=== PATIENT | female | born 1950 | race American Indian/Alaskan Native ===

== ENCOUNTER 2018-06-29 07:02 | Inpatient (IN) | payer MEDICARE ==
[2018-06-29] MEDS ORDERED: ATIVAN ONE (07:04)
[2018-06-29] MEDS ORDERED: ATIVAN IV ONE ×2 (07:09→07:28)
[2018-06-29] MEDS ORDERED: KEPPRA 1,000 MG in NACL 0.9% 100 ML IV ONE (07:10)
--- NOTE | 2018-06-29 07:21 | Emergency Department Report ---
ED Seizure HPI - General Stated Complaint: SEIZURE Time Seen by Provider: 06/29/18 07:09 - History of Present Illness Initial Comments: 67-year-old female presents to the ED by EMS for a seizure. Patient has history of CVA and seizures, currently takes Keppra. states patient got up to go to the bathroom, she then fell, hitting her head, and then began to have a seizure. It is unclear if pt fell due to onset of seizure, or if seizure began after trauma to the head. EMS was called, patient was given 2mg of Ativan and 5 mg of Versed. Patient is still seizing upon ED arrival. and family states patient has not been sick and has not had any complaints recently. MD Complaint: seizure -: This morning Description of Episode: tonic-clonic movement Witnessed:: Yes Trauma: Yes (head) Seizure History: known seizure disorder Place: home Possible Precipitating Event: head injury Treatments Prior to Arrival: benzodiazepines - Related Data Home Medications Medication Instructions Recorded Confirmed Last Taken Insulin Glargine,Hum.rec.anlog 35 unit SQ QHS 05/14/13 06/26/14 06/25/14 21:00 [Lantus Solostar] Previous Rx's Medication Instructions Recorded Last Taken Type Aspirin [Aspirin TAB] 325 mg PO QDAY #30 tablet 07/18/14 Unknown Rx Captopril (Nf) [Capoten (Nf)] 50 mg PO Q8HR #90 tablet 07/18/14 Unknown Rx OXcarbazepine [Trileptal] 600 mg PO BID #60 tablet 07/18/14 Unknown Rx Sertraline [Zoloft] 25 mg PO QDAY #30 tablet 07/18/14 Unknown Rx Simvastatin [Zocor TAB] 10 mg PO QHS #30 tablet 07/18/14 Unknown Rx amLODIPine [Norvasc] 10 mg PO DAILY #30 tablet 07/18/14 Unknown Rx clonazePAM [KlonoPIN] 0.5 mg PO Q12H #60 tablet 07/18/14 Unknown Rx hydrALAZINE [Apresoline TAB] 10 mg PO Q8HR PRN #90 tablet 07/18/14 Unknown Rx hydroCHLOROthiazide [HCTZ] 12.5 mg PO QDAY #30 capsule 07/18/14 Unknown Rx oxyCODONE /ACETAMINOPHEN [Percocet 1 tab PO Q6H PRN #14 tablet 07/18/14 Unknown Rx 5/325 mg] Allergies Allergy/AdvReac Type Severity Reaction Status Date / Time paper tape Allergy Itching Uncoded 06/28/14 02:59 ED Review of Systems ROS: Stated complaint: SEIZURE Other details as noted in HPI Comment: Unobtainable due to pts medical conditions (pt w/ altered mental status) ED Past Medical Hx - Past Medical History Hx Hypertension: Yes Hx CVA: Yes Hx Heart Attack/AMI: No Hx Congestive Heart Failure: No Hx Diabetes: Yes Hx Deep Vein Thrombosis: No Hx Pulmonary Embolism: No Hx Liver Disease: No Hx Renal Disease: No Hx Sickle Cell Disease: No Hx Arthritis: Yes Hx Headaches / Migraines: Yes Hx Seizures: Yes Hx Kidney Stones: Yes (removed 2009) Hx Asthma: No Hx COPD: No Hx Tuberculosis: No Hx Dementia: No Hx HIV: No - Surgical History Hx Coronary Stent: No Hx Open Heart Surgery: No Hx Pacemaker: No Hx Internal Defibrillator: No Hx Cholecystectomy: Yes Hx Appendectomy: No Hx Breast Surgery: No - Social History Smoking Status: Former Smoker - Medications Home Medications: Home Medications Medication Instructions Recorded Confirmed Last Taken Type Insulin Glargine,Hum.rec.anlog 35 unit SQ QHS 05/14/13 06/26/14 06/25/14 21:00 History [Lantus Solostar] Aspirin [Aspirin TAB] 325 mg PO QDAY #30 tablet 07/18/14 Unknown Rx Captopril (Nf) [Capoten (Nf)] 50 mg PO Q8HR #90 tablet 07/18/14 Unknown Rx OXcarbazepine [Trileptal] 600 mg PO BID #60 tablet 07/18/14 Unknown Rx Sertraline [Zoloft] 25 mg PO QDAY #30 tablet 07/18/14 Unknown Rx Simvastatin [Zocor TAB] 10 mg PO QHS #30 tablet 07/18/14 Unknown Rx amLODIPine [Norvasc] 10 mg PO DAILY #30 tablet 07/18/14 Unknown Rx clonazePAM [KlonoPIN] 0.5 mg PO Q12H #60 tablet 07/18/14 Unknown Rx hydrALAZINE [Apresoline TAB] 10 mg PO Q8HR PRN #90 tablet 07/18/14 Unknown Rx hydroCHLOROthiazide [HCTZ] 12.5 mg PO QDAY #30 capsule 07/18/14 Unknown Rx oxyCODONE /ACETAMINOPHEN [Percocet 1 tab PO Q6H PRN #14 tablet 07/18/14 Unknown Rx 5/325 mg] ED Physical Exam - Head Head exam: Present: atraumatic, normocephalic - Eye Eye exam: Present: PERRL - ENT ENT exam: Present: mucous membranes moist - Neck Neck exam: Present: normal inspection - Respiratory Respiratory exam: Present: normal lung sounds bilaterally, other (tachypneic) - Cardiovascular Cardiovascular Exam: Present: normal rhythm, tachycardia - GI/Abdominal GI/Abdominal exam: Present: soft. Absent: distended - Extremities Exam Extremities exam: Present: normal inspection - Neurological Exam Neurological exam: Present: other (pt is obtunded; seizure has stopped, pt mov ing right hand to nose, moving right leg; not following commands; no movement noted in left arm or leg, family reports left-sided deficits from her CVA) - Skin Skin exam: Present: warm, dry, intact, normal color. Absent: rash ED Course Vital Signs 06/29/18 06/29/18 06/29/18 07:02 07:04 07:16 Temperature Pulse Rate 140 H 117 H 112 H Respiratory 30 H 35 H Rate Blood Pressure 172/98 172/98 O2 Sat by Pulse 98 99 99 Oximetry 06/29/18 06/29/18 06/29/18 07:30 07:46 07:47 Temperature Pulse Rate 121 H 122 H 121 H Respiratory 29 H 17 Rate Blood Pressure 153/69 116/75 117/75 O2 Sat by Pulse 100 100 100 Oximetry 06/29/18 06/29/18 06/29/18 08:12 08:15 08:30 Temperature Pulse Rate 113 H 114 H 114 H Respiratory 25 H 22 15 Rate Blood Pressure 116/75 133/66 138/63 O2 Sat by Pulse 97 96 Oximetry 06/29/18 06/29/18 06/29/18 08:45 08:46 09:00 Temperature 99.0 F Pulse Rate 110 H 110 H Respiratory 18 18 Rate Blood Pressure 91/48 106/58 O2 Sat by Pulse 97 97 Oximetry 06/29/18 06/29/18 09:12 09:15 Temperature Pulse Rate 106 H 106 H Respiratory 20 Rate Blood Pressure 106/58 111/57 O2 Sat by Pulse 99 99 Oximetry - Intubation Time Out Performed: Yes Sedative: Etomidate Mg Given: 30 Paralytic: Succinylcholine Mg Given: 150 Laryngoscope: Kimberley Size: 4 ET Tube Size: 7.5 Tube Placement Confirmation: visualized tube passing t, equal breath sounds bilat, no breath sounds over epi, confirmation by capnometr Patient Tolerated Procedure: well Intubation Complications: none ED Medical Decision Making - Lab Data Result diagrams: 06/29/18 Unknown 06/29/18 Unknown - Radiology Data Radiology results: report reviewed, image reviewed - Medical Decision Making 67-year-old female in status epilepticus. History of seizures, on keppra. The patient began seizing at home, initially given 5 mg of Versed and 2 mg of Ativan by EMS. Patient presented to ER actively seizing, so 2 mg of Ativan was given, along with 1 g of Keppra. Seizure resolved briefly, but then returned. Patient was given another 2 mg of Ativan. Decision was made to intubate patient for airway protection. Chest x-ray showed adequate placement of ET tube, with no other acute abnormalities. Head CT negative for any acute abnormalities also. Patient currently sedated on propofol drip, no seizure activity noted. Labs resulted. Leukocytosis present, likely due to seizure. Mild CO2 retention on ABG, vent rate increased. UA shows no ketones, no UTI. Hyperglycemia present, however her CO2 normal, no ketones in urine, likely not DKA. Will admit to hospitalist, bridge orders placed. - Differential Diagnosis intracranial injury, electrolyte abnormality, infection, status epilepticus Critical Care Time: Yes Critical care time in (mins) excluding proc time.: 35 Critical care attestation.: If time is entered above; I have spent that time in minutes in the direct care of this critically ill patient, excluding procedure time. Critical Care Time: 35 minutes ED Disposition Clinical Impression: Status epilepticus, Hyperglycemia Disposition: DC OP ADMIT IP TO THIS HOSP Is pt being admited?: Yes Condition: Stable Referrals: PRIMARY CARE, [Primary Care Provider] - 3-5 Days
[2018-06-29] MEDS ORDERED: NACL 0.9% 1000 ML 1,000 ML ONE (07:36)
[2018-06-29] MEDS ORDERED: AMIDATE IV ONE ×2 (07:41→10:26)
[2018-06-29] MEDS ORDERED: QUELICIN IV ONE (07:41)
[2018-06-29] MEDS ORDERED: NACL 0.9% 1000 ML 1,000 ML IV ONE ×2 (07:41→08:52)
[2018-06-29] MEDS: DIPRIVAN 10 MG/ML 1,000 MG/100 ML BOTTLE IV ONE ×2 (07:58→13:39)
[2018-06-29] MEDS ORDERED: KEPPRA 1,000 MG/NS 0.75% 100ML 1,000 MG/100 ML BAG IV ONE ×2 (08:00→12:16)
[2018-06-29 08:13] LABS: Hematocrit 47.2 % (30.3-42.9); Hemoglobin 15.8 gm/dl (10.1-14.3); Mean Corpuscular HGB Conc 33 % (30-34); Mean Corpuscular Volume 91 fl (79-97); Platelet Count 328 K/mm3 (140-440); Red Blood Count 5.18 M/mm3 (3.65-5.03)
--- NOTE | 2018-06-29 08:13 | XRay Report ---
AP CHEST: HISTORY: Endotracheal tube placement Compared to 06/26/14. The endotracheal tube terminates 3 cm from the flip. There is poor pulmonary inflation with minor bibasilar atelectatic changes. No obvious infiltrate, pleural effusion or pneumothorax. Heart size is within normal limits. IMPRESSION: Adequate endotracheal tube placement. Grossly negative chest x-ray with poor inspiration.
--- NOTE | 2018-06-29 08:22 | Cat Scan Report ---
CT HEAD WITHOUT CONTRAST: HISTORY: Head injury, seizure. TECHNIQUE: Sequential CT images without contrast. FINDINGS: Compared to the exam dated 07/13/14. The previously described right MCA infarct has evolved and now has a chronic appearance. Small chronic cortical infarcts are identified in the anterior right frontal lobe and superior right temporal lobe. Larger cortical infarct measuring up to 6 x 3 cm in the right parietal lobe is noted. There is moderate diffuse volume loss and mild nonspecific chronic white matter changes. No evidence for acute hemorrhage, extra axial fluid collection or obvious mass. Ventricular size is within normal limits. Resolution of the posterior fossa is slightly limited secondary to streak artifact but no gross abnormality is detected. The right frontal and right anterior ethmoid air cells are opacified. The remaining sinuses and mastoid air cells are adequately aerated. No calvarial fracture is detected. IMPRESSION: No acute intracranial process is identified. No evidence for acute injury. Chronic cortical infarcts in the right cerebral hemisphere as described. Mild volume loss and chronic white matter changes. Chronic sinus disease as described.
[2018-06-29 08:32] LABS: Albumin 4.2 g/dL (3.9-5); BUN/Creatinine Ratio 14; Blood Urea Nitrogen 13 mg/dL (7-17); Calcium 8.6 mg/dL (8.4-10.2); Hemolysis Index 106
[2018-06-29 08:57] LABS: Alanine Aminotransferase 11 units/L (7-56)
[2018-06-29] MEDS ORDERED: HumuLIN R IV ONE (09:10)
[2018-06-29 09:18] LABS: Bilirubin,Urine NEG (Negative); Blood,Urine NEG (Negative); Color,Urine Straw (Yellow); RBC,Urine < 1.0 /HPF (0.0-6.0); Urobilinogen,Urine < 2.0 mg/dL (<2.0)
[2018-06-29 09:59] LABS: Basophils % (Manual) 0 % (0.0-1.8); Eosinophils % (Manual) 0 % (0.0-4.3); Total Cells Counted 100
[2018-06-29 10:00] LABS: Anisocytosis 1+; Platelet Estimate Consistent w Auto
[2018-06-29] MEDS ORDERED: QUELICIN ONE (10:26)
--- NOTE | 2018-06-29 11:35 | XRay Report ---
AP ABDOMEN: HISTORY: OG tube placement. The OG tube terminates in the body of the stomach. The abdominal gas pattern is unremarkable. No masses or organomegaly is identified and there is no gross evidence of free air or fluid. No significant soft tissue calcifications are noted. Moderate cardiomegaly is noted. IMPRESSION: Unremarkable abdomen. The OG tube terminates in the mid stomach.
--- NOTE | 2018-06-29 13:08 | History and Physical Report ---
History of Present Illness Date of admission: 06/29/18 09:59 Chief complaint: Grand mal seizure History of present illness: 67F w hx of seizures on trileptal who presents from home with grand kristin oro, she was given versed and ativan by EMS, and brought to ER, she was still actively seizing in ER. she received more ativan and keppra, continued to have seizures, was then inutubated and sedated on propofol ggt, seizures have now seized. currently sedated Past History Past Medical History: arthritis, diabetes, hypertension, other (depression), R MCA CVA in 2014 Past Surgical History: , Other (ACDF, right shoulder) Social history: , lives with family, smoking (1/2 ppd) Medications and Allergies Allergies Allergy/AdvReac Type Severity Reaction Status Date / Time paper tape Allergy Itching Uncoded 06/28/14 02:59 Home Medications Medication Instructions Recorded Confirmed Last Taken Type Insulin Glargine,Hum.rec.anlog 35 unit SQ QHS 05/14/13 06/26/14 06/25/14 21:00 History [Lantus Solostar] Aspirin [Aspirin TAB] 325 mg PO QDAY #30 tablet 07/18/14 Unknown Rx Captopril (Nf) [Capoten (Nf)] 50 mg PO Q8HR #90 tablet 07/18/14 Unknown Rx OXcarbazepine [Trileptal] 600 mg PO BID #60 tablet 07/18/14 Unknown Rx Sertraline [Zoloft] 25 mg PO QDAY #30 tablet 07/18/14 Unknown Rx Simvastatin [Zocor TAB] 10 mg PO QHS #30 tablet 07/18/14 Unknown Rx amLODIPine [Norvasc] 10 mg PO DAILY #30 tablet 07/18/14 Unknown Rx clonazePAM [KlonoPIN] 0.5 mg PO Q12H #60 tablet 07/18/14 Unknown Rx hydrALAZINE [Apresoline TAB] 10 mg PO Q8HR PRN #90 tablet 07/18/14 Unknown Rx hydroCHLOROthiazide [HCTZ] 12.5 mg PO QDAY #30 capsule 07/18/14 Unknown Rx oxyCODONE /ACETAMINOPHEN [Percocet 1 tab PO Q6H PRN #14 tablet 07/18/14 Unknown Rx 5/325 mg] Active Meds: Active Medications Propofol (Diprivan 10 Mg/Ml) 1,000 mg in 100 mls @ 2.871 mls/hr IV TITR ONE; Protocol Stop: 06/30/18 18:38 Last Titration: 06/29/18 08:30 Dose: 30 mcg/kg/min, 17.226 mls/hr Documented by: Pneumococcal Polyvalent Vaccine (Pneumovax 23) 0.5 ml IM .ONCE ONE Stop: 06/30/18 12:01 Review of Systems ROS unobtainable: due to mental status Exam - Constitutional Vitals: Temp Pulse Resp BP Pulse Ox 99.0 F 102 H 22 130/65 98 06/29/18 08:45 06/29/18 10:15 06/29/18 10:15 06/29/18 10:15 06/29/18 10:15 General appearance: Present: well-nourished - EENT Eyes: Present: PERRL ENT: hearing intact, clear oral mucosa - Neck Neck: Present: supple, normal ROM - Respiratory Respiratory effort: normal Respiratory: bilateral: CTA - Cardiovascular Heart Sounds: Present: S1 & S2. Absent: rub, click - Extremities Extremities: pulses symmetrical, No edema Peripheral Pulses: within normal limits - Abdominal General gastrointestinal: Present: soft, non-tender, non-distended, normal bowel sounds Female genitourinary: Present: normal - Integumentary Integumentary: Present: clear, warm, dry - Musculoskeletal Musculoskeletal: gait normal, strength equal bilaterally - Psychiatric Psychiatric: other (intubated and sedated.) - Neurologic Neurologic: other (intubated and sedated) Results - Labs CBC & Chem 7: 06/29/18 Unknown 06/29/18 Unknown Labs: Laboratory Last Values WBC 21.5 K/mm3 (4.5-11.0) H 06/29/18 Unknown RBC 5.18 M/mm3 (3.65-5.03) H 06/29/18 Unknown Hgb 15.8 gm/dl (10.1-14.3) H 06/29/18 Unknown Hct 47.2 % (30.3-42.9) H 06/29/18 Unknown MCV 91 fl (79-97) 06/29/18 Unknown MCH 30 pg (28-32) 06/29/18 Unknown MCHC 33 % (30-34) 06/29/18 Unknown RDW 14.0 % (13.2-15.2) 06/29/18 Unknown Plt Count 328 K/mm3 (140-440) 06/29/18 Unknown Add Manual Diff Complete 06/29/18 Unknown Total Counted 100 06/29/18 Unknown Seg Neutrophils % Machine Ceramic Coater 06/29/18 Unknown Seg Neuts % (Manual) 96.0 % (40.0-70.0) H 06/29/18 Unknown Band Neutrophils % 0 % 06/29/18 Unknown Lymphocytes % (Manual) 3.0 % (13.4-35.0) L 06/29/18 Unknown Reactive Lymphs % (Man) 0 % 06/29/18 Unknown Monocytes % (Manual) 1.0 % (0.0-7.3) 06/29/18 Unknown Eosinophils % (Manual) 0 % (0.0-4.3) 06/29/18 Unknown Basophils % (Manual) 0 % (0.0-1.8) 06/29/18 Unknown Metamyelocytes % 0 % 06/29/18 Unknown Myelocytes % 0 % 06/29/18 Unknown Promyelocytes % 0 % 06/29/18 Unknown Blast Cells % 0 % 06/29/18 Unknown Nucleated RBC % Not Reportable 06/29/18 Unknown Seg Neutrophils # Man 20.6 K/mm3 (1.8-7.7) H 06/29/18 Unknown Band Neutrophils # 0.0 K/mm3 06/29/18 Unknown Lymphocytes # (Manual) 0.6 K/mm3 (1.2-5.4) L 06/29/18 Unknown Abs React Lymphs (Man) 0.0 K/mm3 06/29/18 Unknown Monocytes # (Manual) 0.2 K/mm3 (0.0-0.8) 06/29/18 Unknown Eosinophils # (Manual) 0.0 K/mm3 (0.0-0.4) 06/29/18 Unknown Basophils # (Manual) 0.0 K/mm3 (0.0-0.1) 06/29/18 Unknown Metamyelocytes # 0.0 K/mm3 06/29/18 Unknown Myelocytes # 0.0 K/mm3 06/29/18 Unknown Promyelocytes # 0.0 K/mm3 06/29/18 Unknown Blast Cells # 0.0 K/mm3 06/29/18 Unknown WBC Morphology Not Reportable 06/29/18 Unknown Hypersegmented Neuts Not Reportable 06/29/18 Unknown Hyposegmented Neuts Not Reportable 06/29/18 Unknown Hypogranular Neuts Not Reportable 06/29/18 Unknown Smudge Cells Not Reportable 06/29/18 Unknown Toxic Granulation Not Reportable 06/29/18 Unknown Toxic Vacuolation Not Reportable 06/29/18 Unknown Dohle Bodies Not Reportable 06/29/18 Unknown Pelger-Huet Anomaly Not Reportable 06/29/18 Unknown Johanna Rods Not Reportable 06/29/18 Unknown Platelet Estimate Consistent w auto 06/29/18 Unknown Clumped Platelets Not Reportable 06/29/18 Unknown Plt Clumps, EDTA Not Reportable 06/29/18 Unknown Large Platelets Not Reportable 06/29/18 Unknown Giant Platelets Not Reportable 06/29/18 Unknown Platelet Satelliting Not Reportable 06/29/18 Unknown Plt Morphology Comment Not Reportable 06/29/18 Unknown RBC Morphology Not Reportable 06/29/18 Unknown Dimorphic RBCs Not Reportable 06/29/18 Unknown Polychromasia 1+ 06/29/18 Unknown Hypochromasia Not Reportable 06/29/18 Unknown Poikilocytosis Not Reportable 06/29/18 Unknown Anisocytosis 1+ 06/29/18 Unknown Microcytosis Not Reportable 06/29/18 Unknown Macrocytosis Not Reportable 06/29/18 Unknown Spherocytes Not Reportable 06/29/18 Unknown Pappenheimer Bodies Not Reportable 06/29/18 Unknown Sickle Cells Not Reportable 06/29/18 Unknown Target Cells Not Reportable 06/29/18 Unknown Tear Drop Cells Not Reportable 06/29/18 Unknown Ovalocytes Not Reportable 06/29/18 Unknown Helmet Cells Not Reportable 06/29/18 Unknown [place] Bodies Not Reportable 06/29/18 Unknown [place] Rings Not Reportable 06/29/18 Unknown [place] Cells Not Reportable 06/29/18 Unknown Bite Cells Not Reportable 06/29/18 Unknown Crenated Cell Not Reportable 06/29/18 Unknown Elliptocytes Not Reportable 06/29/18 Unknown Acanthocytes (Spur) Not Reportable 06/29/18 Unknown Rouleaux Not Reportable 06/29/18 Unknown Hemoglobin C Crystals Not Reportable 06/29/18 Unknown Schistocytes Not Reportable 06/29/18 Unknown Malaria parasites Not Reportable 06/29/18 Unknown Alex Bodies Not Reportable 06/29/18 Unknown Hem Pathologist Commnt No 06/29/18 Unknown POC ABG pH 7.313 (7.35-7.45) L 06/29/18 09:12 POC ABG pCO2 49.6 (35-45) H 06/29/18 09:12 POC ABG pO2 81 (80-105) 06/29/18 09:12 POC ABG HCO3 25.1 06/29/18 09:12 POC ABG Total CO2 27 06/29/18 09:12 POC ABG O2 Sat 95 06/29/18 09:12 POC ABG Base Excess -1 06/29/18 09:12 FiO2 45 % 06/29/18 09:12 Sodium 136 mmol/L (137-145) L 06/29/18 Unknown Potassium 5.5 mmol/L (3.6-5.0) H 06/29/18 Unknown Chloride 92.5 mmol/L (98-107) L 06/29/18 Unknown Carbon Dioxide 25 mmol/L (22-30) 06/29/18 Unknown Anion Gap 24 mmol/L 06/29/18 Unknown BUN 13 mg/dL (7-17) 06/29/18 Unknown Creatinine 0.9 mg/dL (0.7-1.2) 06/29/18 Unknown Estimated GFR > 60 ml/min 06/29/18 Unknown BUN/Creatinine Ratio 14 % 06/29/18 Unknown Glucose 398 mg/dL (65-100) H 06/29/18 Unknown POC Glucose 211 (70-105) H 06/29/18 11:35 Calcium 8.6 mg/dL (8.4-10.2) 06/29/18 Unknown Total Bilirubin 0.50 mg/dL (0.1-1.2) 06/29/18 Unknown AST 28 units/L (5-40) 06/29/18 Unknown ALT 11 units/L (7-56) 06/29/18 Unknown Alkaline Phosphatase 89 units/L (35-129) 06/29/18 Unknown Total Creatine Kinase 101 units/L (30-135) 06/29/18 Unknown Total Protein 7.2 g/dL (6.3-8.2) 06/29/18 Unknown Albumin 4.2 g/dL (3.9-5) 06/29/18 Unknown Albumin/Globulin Ratio 1.4 % 06/29/18 Unknown Urine Color Straw (Yellow) 06/29/18 08:14 Urine Turbidity Clear (Clear) 06/29/18 08:14 Urine pH 7.0 (5.0-7.0) 06/29/18 08:14 Ur Specific [place] 1.009 (1.003-1.030) 06/29/18 08:14 Urine Protein 100 mg/dl mg/dL (Negative) 06/29/18 08:14 Urine Glucose (UA) >=500 mg/dL (Negative) 06/29/18 08:14 Urine Ketones Neg mg/dL (Negative) 06/29/18 08:14 Urine Blood Neg (Negative) 06/29/18 08:14 Urine Nitrite Neg (Negative) 06/29/18 08:14 Urine Bilirubin Neg (Negative) 06/29/18 08:14 Urine Urobilinogen < 2.0 mg/dL (<2.0) 06/29/18 08:14 Ur Leukocyte Esterase Neg (Negative) 06/29/18 08:14 Urine WBC (Auto) 2.0 /HPF (0.0-6.0) 06/29/18 08:14 Urine RBC (Auto) < 1.0 /HPF (0.0-6.0) 06/29/18 08:14 - Imaging and Cardiology Chest x-ray: image reviewed (no infiltrate) CT Scan - head: image reviewed (no acute findings) Assessment and Plan Assessment and plan: 67f who pw status epilepticus, continued seizing despite multiple doses of ativan, and was given keppra and versed, was then intubated and sedated on propofol ggt after which seizures ceased Dx Status epilepticus Acute metabolic encephalopathy SIRS without organ dysfunction Hyperkalemia Hyperglycemia Type 2 dm Plan UA, cxr, neg, fup sputum cx Intubated and sedated, IV Keppra, neurology consult, CT head negative Continue ventilator, wean per pulmonology Discontinue Coker catheter IV fluids, hyperkalemia and hyperglycemia should correct with IV fluids -SSi, optimize insulins DVT prophylaxis, SCDs Critical care TIME 35 MINUTES
[2018-06-29] MEDS ORDERED: DIPRIVAN 10 MG/ML 1,000 MG/100 ML BOTTLE IV ONE (13:23)
[2018-06-29] MEDS ORDERED: D50W (25GM) Syringe IV PRN (13:42)
[2018-06-29] MEDS ORDERED: SODIUM CHLORIDE FLUSH SYRINGE 10 ML IV PRN (13:42)
[2018-06-29] MEDS ORDERED: ZOFRAN IV PRN (13:42)
[2018-06-29] MEDS ORDERED: TYLENOL PO PRN (13:42)
[2018-06-29] MEDS ORDERED: NACL 0.9% 1000 ML 1,000 ML IV SCH (14:00)
[2018-06-29] MEDS: HumuLIN R SUB-Q SCH (15:21)
[2018-06-29] MEDS ORDERED: NON-FORMULARY (Simvastatin 10 MG) PO SCH (22:00)
[2018-06-29] MEDS: TRILEPTAL PO SCH (22:15)
[2018-06-29] MEDS: PRAVACHOL PO SCH (22:16)
[2018-06-29] MEDS: KEPPRA 1,000 MG/NS 0.75% 100ML 1,000 MG/100 ML BAG IV SCH (22:16)
[2018-06-29] MEDS: SODIUM CHLORIDE FLUSH SYRINGE 10 ML IV SCH (22:17)
[2018-06-30] MEDS: HumuLIN R SUB-Q SCH ×6 (00:15→21:31)
[2018-06-30 04:59] LABS: Hemoglobin 14.8 gm/dl (10.1-14.3); Mean Corpuscular HGB Conc 33 % (30-34); Mean Corpuscular Volume 90 fl (79-97); Platelet Count 280 K/mm3 (140-440); Red Blood Count 4.98 M/mm3 (3.65-5.03); Red Cell Distribution Width 13.7 % (13.2-15.2)
[2018-06-30 05:08] LABS: Calcium 8.3 mg/dL (8.4-10.2)
[2018-06-30 05:49] LABS: Band Neutrophils # (Manual) 0.4 K/mm3; Basophils % (Manual) 0 % (0.0-1.8); Eosinophils % (Manual) 0 % (0.0-4.3); RBC Morphology Normal; Total Cells Counted 100
[2018-06-30] MEDS ORDERED: POTASSIUM CHLORIDE FEEDTUBE ONE ×3 (07:00→11:00)
[2018-06-30] MEDS ORDERED: SIMPLE SYRUP FEEDTUBE PRN ×2 (09:13)
[2018-06-30] MEDS ORDERED: SODIUM BICARBONATE FEEDTUBE PRN (09:13)
[2018-06-30] MEDS ORDERED: PANCREAZE DR 10,500 UNIT FEEDTUBE PRN (09:13)
[2018-06-30] MEDS ORDERED: DIPRIVAN 10 MG/ML 1,000 MG/100 ML BOTTLE IV SCH (10:00)
[2018-06-30] MEDS ORDERED: PEPCID IV SCH (10:00)
[2018-06-30] MEDS: ZOLOFT PO SCH (10:53)
[2018-06-30] MEDS: TRILEPTAL PO SCH (10:53)
[2018-06-30] MEDS: SODIUM CHLORIDE FLUSH SYRINGE 10 ML IV SCH ×2 (10:54→21:35)
[2018-06-30] MEDS: KEPPRA 1,000 MG/NS 0.75% 100ML 1,000 MG/100 ML BAG IV SCH (10:54)
--- NOTE | 2018-06-30 11:49 | Consultation ---
History of Present Illness Consult date: 06/30/18 Requesting physician: HAZEL ZELAYA Reason for consult: other (Status Epilepticus) History of present illness: 67 y/o history of seizures who fell and was brought to the ED actively seizing. She was given Ativan and Versed and seizure not broken. Patient intubated and placed on Diprovan with cessation of seizures. Loaded with Keppra and then started on BID Keppra. Patient was on triletpal at home prior to this. Past History Past Medical History: diabetes, hypertension, seizures Past Surgical History: Other (unable to be obtained) Social history: other (unable to be obtained) Family history: other (unable to be obtained) Medications and Allergies Allergies Allergy/AdvReac Type Severity Reaction Status Date / Time paper tape Allergy Itching Uncoded 06/28/14 02:59 Home Medications Medication Instructions Recorded Confirmed Last Taken Type Duloxetine HCl [DULoxetine] 30 mg PO DAILY 06/29/18 06/29/18 Unknown History Insulin Detemir [Levemir] 30 unit SQ BID 06/29/18 06/29/18 Unknown History Lisinopril [Zestril] 20 mg PO BID 06/29/18 06/29/18 Unknown History Quetiapine Fumarate [SEROquel] 50 mg PO QDAY 06/29/18 06/29/18 Unknown History levETIRAcetam [Keppra TAB] 1,000 mg PO BID 06/29/18 06/29/18 Unknown History metFORMIN [Glucophage] 500 mg PO BID 06/29/18 06/29/18 Unknown History Active Meds: Active Medications Acetaminophen (Tylenol) 650 mg PO Q4H PRN PRN Reason: Pain MILD(1-3)/Fever >100.5/PEREZ Lipase/Protease/Amylase ([place]creaze Dr 10,500 Unit) 1 each FEEDTUBE PRN PRN PRN Reason: For Clogged Feeding Tube Dextrose (D50w (25gm) Syringe) 50 ml IV PRN PRN PRN Reason: Hypoglycemia Heparin Sodium (Porcine) (Heparin) 5,000 unit SUB-Q Q8HR [facility] Levetiracetam (Keppra 1,000 Mg/Ns 0.75% 100ml) 1,000 mg in 100 mls @ 400 mls/hr IV Q12HR [facility] Last Admin: 06/30/18 10:54 Dose: 400 mls/hr Documented by: Propofol (Diprivan 10 Mg/Ml) 1,000 mg in 100 mls @ 2.871 mls/hr IV TITR [facility]; Protocol Insulin Human Regular (Humulin R) 0 units SUB-Q Q6HR [facility]; Protocol Last Admin: 06/30/18 06:07 Dose: 3 units Documented by: Ondansetron HCl (Zofran) 4 mg IV Q8H PRN PRN Reason: Nausea And Vomiting Oxcarbazepine (Trileptal) 600 mg PO BID [facility] Last Admin: 06/30/18 10:53 Dose: 600 mg Documented by: Pneumococcal Polyvalent Vaccine (Pneumovax 23) 0.5 ml IM .ONCE ONE Stop: 06/30/18 12:01 Last Admin: 06/30/18 11:11 Dose: Not Given Documented by: Pravastatin Sodium (Pravachol) 20 mg PO QHS [facility] Last Admin: 06/29/18 22:16 Dose: 20 mg Documented by: Sertraline HCl (Zoloft) 25 mg PO QDAY [facility] Last Admin: 06/30/18 10:53 Dose: 25 mg Documented by: Simple Syrup (Simple Syrup) 15 ml FEEDTUBE PRN PRN PRN Reason: Hypoglycemia Simple Syrup (Simple Syrup) 30 ml FEEDTUBE PRN PRN PRN Reason: Hypoglycemia Sodium Bicarbonate (Sodium Bicarbonate) 325 mg FEEDTUBE PRN PRN PRN Reason: For Clogged Feeding Tube Sodium Chloride (Sodium Chloride Flush Syringe 10 Ml) 10 ml IV BID [facility] Last Admin: 06/30/18 10:54 Dose: 10 ml Documented by: Sodium Chloride (Sodium Chloride Flush Syringe 10 Ml) 10 ml IV PRN PRN PRN Reason: LINE FLUSH Review of Systems All systems: negative Physical Examination Vital signs: Vital Signs Pulse Pulse Ox 140 H 98 06/29/18 07:02 06/29/18 07:02 General appearance: no acute distress, alert ENT: other (orally intubated and sedated) Neck: supple Effort: normal Ascultation: Bilateral: clear Percussion: Bilateral: not dull Cardiovascular: regular rate and rhythm Gastrointestinal: normoactive bowel sounds, soft, non-distended Integumentary: normal Extremities: no cyanosis, no edema, pink and warm, pulses normal normal mental status, non-focal exam, CN II-XII normal Results - Laboratory Findings CBC and BMP: 06/30/18 03:47 06/30/18 03:47 ABG POC ABG pH 7.478 (7.35-7.45) H 06/30/18 04:52 POC ABG pCO2 32.4 (35-45) L 06/30/18 04:52 POC ABG pO2 76 (80-105) L 06/30/18 04:52 POC ABG HCO3 24.0 06/30/18 04:52 POC ABG Total CO2 25 06/30/18 04:52 POC ABG O2 Sat 96 06/30/18 04:52 Abnormal lab findings: Abnormal Labs 06/29/18 06/29/18 06/29/18 09:11 09:12 11:35 WBC RBC Hgb Hct Seg Neuts % (Manual) Lymphocytes % (Manual) Seg Neutrophils # Man Lymphocytes # (Manual) Monocytes # (Manual) POC ABG pH 7.313 L POC ABG pCO2 49.6 H POC ABG pO2 Sodium Potassium Chloride BUN Glucose POC Glucose 320 H 211 H Hemoglobin A1c Calcium 06/29/18 06/29/18 06/29/18 15:20 16:52 23:48 WBC RBC Hgb Hct Seg Neuts % (Manual) Lymphocytes % (Manual) Seg Neutrophils # Man Lymphocytes # (Manual) Monocytes # (Manual) POC ABG pH POC ABG pCO2 34.3 L POC ABG pO2 Sodium Potassium Chloride BUN Glucose POC Glucose 142 H 154 H Hemoglobin A1c Calcium 06/29/18 06/29/18 06/30/18 Unknown Unknown 03:47 WBC 21.5 H 21.4 H RBC 5.18 H Hgb 15.8 H 14.8 H Hct 47.2 H 45.0 H Seg Neuts % (Manual) 96.0 H 80.0 H Lymphocytes % (Manual) 3.0 L 12.0 L Seg Neutrophils # Man 20.6 H 17.1 H Lymphocytes # (Manual) 0.6 L Monocytes # (Manual) 1.3 H POC ABG pH POC ABG pCO2 POC ABG pO2 Sodium 136 L Potassium 5.5 H Chloride 92.5 L BUN Glucose 398 H POC Glucose Hemoglobin A1c Calcium 06/30/18 06/30/18 06/30/18 03:47 04:52 05:11 WBC RBC Hgb Hct Seg Neuts % (Manual) Lymphocytes % (Manual) Seg Neutrophils # Man Lymphocytes # (Manual) Monocytes # (Manual) POC ABG pH 7.478 H POC ABG pCO2 32.4 L POC ABG pO2 76 L Sodium Potassium 3.4 L D Chloride BUN 20 H Glucose 177 H POC Glucose 205 H Hemoglobin A1c Calcium 8.3 L 06/30/18 Unknown WBC RBC Hgb Hct Seg Neuts % (Manual) Lymphocytes % (Manual) Seg Neutrophils # Man Lymphocytes # (Manual) Monocytes # (Manual) POC ABG pH POC ABG pCO2 POC ABG pO2 Sodium Potassium Chloride BUN Glucose POC Glucose Hemoglobin A1c 11.3 H Calcium - Diagnostic Findings Chest x-ray: image reviewed (Clear CXR, no evidence of acute lung disease) Assessment and Plan 67 y/o female with status epilepticus, intubated and diprovan used for seizure . 1. Seizures have stopped. Stable on Trileptal and BID keppra 2. Will extubate today. 3. Can likely transfer but have no problem with monitoring patient overnight. 4. Bedside swallow vs Speech eval and reconcile home meds to restart CCT 31 minutes
[2018-06-30] MEDS ORDERED: PNEUMOVAX 23 IM ONE (12:00)
[2018-06-30] MEDS ORDERED: AFLURIA QUAD 2018-2019 SYRINGE IM ONE (12:00)
--- NOTE | 2018-06-30 12:43 | Consultation ---
History of Present Illness Consult date: 06/30/18 Requesting physician: DOMINGUEZ DIAZ Reason for Consult: seizures History of present illness: 67 yr old female with diabetes and hypertension, CVA in 2014, presented to ED after sustaining a fall followed by seizures. The pt. was diagnised with a right parietal stroke in 2014. She had seizures following the stroke and has been on anticonvulsants since that time. Her left side was weak following the stroke, but she rehabilitated well. She has been walking normally, but left hand has coordination problems. states that she takes her meds regularly. On this present admission the pt. was walking to the bathroom when she lost her balance, fell striking her head against the door. Seizures developed then and continued to occur in the ER. She was treated with Ativan and keppra. No further seizures have occurred overnight She was extubated this a.m. without difficulty. She denies headache or tenderness to posterior scalp. Past History Past Medical History: diabetes, hypertension, seizures, stroke Past Surgical History: Other (unable to be obtained) Social history: , lives with family, other (unable to be obtained). denies: smoking, alcohol abuse Family history: other (unable to be obtained) Medications and Allergies Allergies Allergy/AdvReac Type Severity Reaction Status Date / Time paper tape Allergy Itching Uncoded 06/28/14 02:59 Home Medications Medication Instructions Recorded Confirmed Last Taken Type Duloxetine HCl [DULoxetine] 30 mg PO DAILY 06/29/18 06/29/18 Unknown History Insulin Detemir [Levemir] 30 unit SQ BID 06/29/18 06/29/18 Unknown History Lisinopril [Zestril] 20 mg PO BID 06/29/18 06/29/18 Unknown History Quetiapine Fumarate [SEROquel] 50 mg PO QDAY 06/29/18 06/29/18 Unknown History levETIRAcetam [Keppra TAB] 1,000 mg PO BID 06/29/18 06/29/18 Unknown History metFORMIN [Glucophage] 500 mg PO BID 06/29/18 06/29/18 Unknown History Active Meds: Active Medications Acetaminophen (Tylenol) 650 mg PO Q4H PRN PRN Reason: Pain MILD(1-3)/Fever >100.5/PEREZ Lipase/Protease/Amylase ([address] Dr 10,500 Unit) 1 each FEEDTUBE PRN PRN PRN Reason: For Clogged Feeding Tube Dextrose (D50w (25gm) Syringe) 50 ml IV PRN PRN PRN Reason: Hypoglycemia Heparin Sodium (Porcine) (Heparin) 5,000 unit SUB-Q Q8HR [facility] Levetiracetam (Keppra 1,000 Mg/Ns 0.75% 100ml) 1,000 mg in 100 mls @ 400 mls/hr IV Q12HR [facility] Last Admin: 06/30/18 10:54 Dose: 400 mls/hr Documented by: Propofol (Diprivan 10 Mg/Ml) 1,000 mg in 100 mls @ 2.871 mls/hr IV TITR [facility]; Protocol Insulin Human Regular (Humulin R) 0 units SUB-Q Q6HR [facility]; Protocol Last Admin: 06/30/18 06:07 Dose: 3 units Documented by: Ondansetron HCl (Zofran) 4 mg IV Q8H PRN PRN Reason: Nausea And Vomiting Oxcarbazepine (Trileptal) 600 mg PO BID [facility] Last Admin: 06/30/18 10:53 Dose: 600 mg Documented by: Pravastatin Sodium (Pravachol) 20 mg PO QHS [facility] Last Admin: 06/29/18 22:16 Dose: 20 mg Documented by: Sertraline HCl (Zoloft) 25 mg PO QDAY [facility] Last Admin: 06/30/18 10:53 Dose: 25 mg Documented by: Simple Syrup (Simple Syrup) 15 ml FEEDTUBE PRN PRN PRN Reason: Hypoglycemia Simple Syrup (Simple Syrup) 30 ml FEEDTUBE PRN PRN PRN Reason: Hypoglycemia Sodium Bicarbonate (Sodium Bicarbonate) 325 mg FEEDTUBE PRN PRN PRN Reason: For Clogged Feeding Tube Sodium Chloride (Sodium Chloride Flush Syringe 10 Ml) 10 ml IV BID [facility] Last Admin: 06/30/18 10:54 Dose: 10 ml Documented by: Sodium Chloride (Sodium Chloride Flush Syringe 10 Ml) 10 ml IV PRN PRN PRN Reason: LINE FLUSH Review of Systems ROS unobtainable: due to mental status Physical Examination - Vital Signs Vital Signs: Vital Signs Pulse Pulse Ox 140 H 98 06/29/18 07:02 06/29/18 07:02 - Physical Exam Narrative exam: Neurological exam - Speech - clear. 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 Hearing diminished. Tongue midline. Motor - 5/5 in bilateral lower extremities and rt. upper extremity. Left UE - 5-/5 distal extensors.. 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 Reflexes - diminished throughout. Babinski negative. Sensory - appears to appreciate touch and sharp equally bilaterally Cerebellar - FTN with dysmetria on left. Fine finger movements clumsy on lrft. Refused to try [place] Results - Laboratory Findings CBC and BMP: 06/30/18 03:47 06/30/18 03:47 Abnormal Lab Findings: Abnormal Labs 06/29/18 06/29/18 06/29/18 09:11 09:12 11:35 WBC RBC Hgb Hct Seg Neuts % (Manual) Lymphocytes % (Manual) Seg Neutrophils # Man Lymphocytes # (Manual) Monocytes # (Manual) POC ABG pH 7.313 L POC ABG pCO2 49.6 H POC ABG pO2 Sodium Potassium Chloride BUN Glucose POC Glucose 320 H 211 H Hemoglobin A1c Calcium 06/29/18 06/29/18 06/29/18 15:20 16:52 23:48 WBC RBC Hgb Hct Seg Neuts % (Manual) Lymphocytes % (Manual) Seg Neutrophils # Man Lymphocytes # (Manual) Monocytes # (Manual) POC ABG pH POC ABG pCO2 34.3 L POC ABG pO2 Sodium Potassium Chloride BUN Glucose POC Glucose 142 H 154 H Hemoglobin A1c Calcium 06/29/18 06/29/18 06/30/18 Unknown Unknown 03:47 WBC 21.5 H 21.4 H RBC 5.18 H Hgb 15.8 H 14.8 H Hct 47.2 H 45.0 H Seg Neuts % (Manual) 96.0 H 80.0 H Lymphocytes % (Manual) 3.0 L 12.0 L Seg Neutrophils # Man 20.6 H 17.1 H Lymphocytes # (Manual) 0.6 L Monocytes # (Manual) 1.3 H POC ABG pH POC ABG pCO2 POC ABG pO2 Sodium 136 L Potassium 5.5 H Chloride 92.5 L BUN Glucose 398 H POC Glucose Hemoglobin A1c Calcium 06/30/18 06/30/18 06/30/18 03:47 04:52 05:11 WBC RBC Hgb Hct Seg Neuts % (Manual) Lymphocytes % (Manual) Seg Neutrophils # Man Lymphocytes # (Manual) Monocytes # (Manual) POC ABG pH 7.478 H POC ABG pCO2 32.4 L POC ABG pO2 76 L Sodium Potassium 3.4 L D Chloride BUN 20 H Glucose 177 H POC Glucose 205 H Hemoglobin A1c Calcium 8.3 L 06/30/18 06/30/18 11:58 Unknown WBC RBC Hgb Hct Seg Neuts % (Manual) Lymphocytes % (Manual) Seg Neutrophils # Man Lymphocytes # (Manual) Monocytes # (Manual) POC ABG pH POC ABG pCO2 POC ABG pO2 Sodium Potassium Chloride BUN Glucose POC Glucose 187 H Hemoglobin A1c 11.3 H Calcium Assessment and Plan 66 yr old female with hx of htn, diabetes, previous CVA with seizure. The pt. had a fall, striking her head, followed by seizures The seizure was probably the result of her head trauma, as noted her to lose balance before the fall. Plan - Maintain Keppra at 1000 mg BID May increase the dose at the time of discharge
[2018-06-30] MEDS ORDERED: NON-FORMULARY (Quetiapine Fumarate [Seroquel] 50 MG) PO SCH (14:15)
[2018-06-30] MEDS ORDERED: ATIVAN PO ONE (14:18)
[2018-06-30] MEDS: HEPARIN SUB-Q SCH ×2 (15:23→21:31)
[2018-06-30] MEDS: CYMBALTA PO SCH (15:23)
--- NOTE | 2018-06-30 15:42 | Progress Note ---
Assessment and Plan Assessment and plan: 67f who pw status epilepticus, continued seizing despite multiple doses of ativan, and was given keppra and versed, was then intubated and sedated on propofol ggt after which seizures ceased Dx Status epilepticus Acute metabolic encephalopathy SIRS without organ dysfunction Hyperkalemia Hyperglycemia Type 2 dm, a1c 11 acute respiratory failure on MV <96hours,due to seizures Plan UA, cxr, neg, fup sputum cx cont keppra, neurology consult, CT head negative was extubated 06/30/18 received iv fluids optimize insulins DVT prophylaxis, SCDs Critical care TIME 35 MINUTES History Interval history: Review of systems Constitutional: No fevers, no malaise, no joint pains CVS: No chest pain, no orthopnea, no dyspnea on exertion, no pedal edema GI: No abdominal pain, no diarrhea, no vomiting, no constipation Respiratory: No shortness of breath, no wheezing, no coughing Hospitalist Physical - Physical exam Narrative exam: General.: Appears well, no distress, nontoxic HEENT: Moist mucous membranes, extraocular muscles intact, no lymphadenopathy Neck: supple Cardiac: S1-S2 heard Lungs: clear to auscultation bilaterally Abdomen: soft , nontender, nondistended, bowel sounds positive Extremities: no edema clubbing or cyanosis Skin: no rash or lesions Neurologic: no gross focal deficits Psych: appropriate behavior, appropriate mood, corporative, judgment intact - Constitutional Vitals: Temp Pulse Resp BP Pulse Ox 98.4 F 104 H 22 131/76 95 06/30/18 12:00 06/30/18 13:51 06/30/18 14:01 06/30/18 14:01 06/30/18 15:29 General appearance: Present: well-nourished Results - Labs CBC & Chem 7: 06/30/18 03:47 06/30/18 03:47 Labs: Laboratory Last Values WBC 21.4 K/mm3 (4.5-11.0) H 06/30/18 03:47 RBC 4.98 M/mm3 (3.65-5.03) 06/30/18 03:47 Hgb 14.8 gm/dl (10.1-14.3) H 06/30/18 03:47 Hct 45.0 % (30.3-42.9) H 06/30/18 03:47 MCV 90 fl (79-97) 06/30/18 03:47 MCH 30 pg (28-32) 06/30/18 03:47 MCHC 33 % (30-34) 06/30/18 03:47 RDW 13.7 % (13.2-15.2) 06/30/18 03:47 Plt Count 280 K/mm3 (140-440) 06/30/18 03:47 Add Manual Diff Complete 06/30/18 03:47 Total Counted 100 06/30/18 03:47 Seg Neutrophils % Maintenance And Custodian Supervisor 06/29/18 Unknown Seg Neuts % (Manual) 80.0 % (40.0-70.0) H 06/30/18 03:47 Band Neutrophils % 2.0 % 06/30/18 03:47 Lymphocytes % (Manual) 12.0 % (13.4-35.0) L 06/30/18 03:47 Reactive Lymphs % (Man) 0 % 06/30/18 03:47 Monocytes % (Manual) 6.0 % (0.0-7.3) 06/30/18 03:47 Eosinophils % (Manual) 0 % (0.0-4.3) 06/30/18 03:47 Basophils % (Manual) 0 % (0.0-1.8) 06/30/18 03:47 Metamyelocytes % 0 % 06/30/18 03:47 Myelocytes % 0 % 06/30/18 03:47 Promyelocytes % 0 % 06/30/18 03:47 Blast Cells % 0 % 06/30/18 03:47 Nucleated RBC % Not Reportable 06/30/18 03:47 Seg Neutrophils # Man 17.1 K/mm3 (1.8-7.7) H 06/30/18 03:47 Band Neutrophils # 0.4 K/mm3 06/30/18 03:47 Lymphocytes # (Manual) 2.6 K/mm3 (1.2-5.4) 06/30/18 03:47 Abs React Lymphs (Man) 0.0 K/mm3 06/30/18 03:47 Monocytes # (Manual) 1.3 K/mm3 (0.0-0.8) H 06/30/18 03:47 Eosinophils # (Manual) 0.0 K/mm3 (0.0-0.4) 06/30/18 03:47 Basophils # (Manual) 0.0 K/mm3 (0.0-0.1) 06/30/18 03:47 Metamyelocytes # 0.0 K/mm3 06/30/18 03:47 Myelocytes # 0.0 K/mm3 06/30/18 03:47 Promyelocytes # 0.0 K/mm3 06/30/18 03:47 Blast Cells # 0.0 K/mm3 06/30/18 03:47 WBC Morphology Not Reportable 06/30/18 03:47 Hypersegmented Neuts Not Reportable 06/30/18 03:47 Hyposegmented Neuts Not Reportable 06/30/18 03:47 Hypogranular Neuts Not Reportable 06/30/18 03:47 Smudge Cells Not Reportable 06/30/18 03:47 Toxic Granulation Not Reportable 06/30/18 03:47 Toxic Vacuolation Not Reportable 06/30/18 03:47 Dohle Bodies Not Reportable 06/30/18 03:47 Pelger-Huet Anomaly Not Reportable 06/30/18 03:47 Johanna Rods Not Reportable 06/30/18 03:47 Platelet Estimate Appears normal 06/30/18 03:47 Clumped Platelets Not Reportable 06/30/18 03:47 Plt Clumps, EDTA Not Reportable 06/30/18 03:47 Large Platelets Not Reportable 06/30/18 03:47 Giant Platelets Not Reportable 06/30/18 03:47 Platelet Satelliting Not Reportable 06/30/18 03:47 Plt Morphology Comment Not Reportable 06/30/18 03:47 RBC Morphology Normal 06/30/18 03:47 Dimorphic RBCs Not Reportable 06/30/18 03:47 Polychromasia Not Reportable 06/30/18 03:47 Hypochromasia Not Reportable 06/30/18 03:47 Poikilocytosis Not Reportable 06/30/18 03:47 Anisocytosis Not Reportable 06/30/18 03:47 Microcytosis Not Reportable 06/30/18 03:47 Macrocytosis Not Reportable 06/30/18 03:47 Spherocytes Not Reportable 06/30/18 03:47 Pappenheimer Bodies Not Reportable 06/30/18 03:47 Sickle Cells Not Reportable 06/30/18 03:47 Target Cells Not Reportable 06/30/18 03:47 Tear Drop Cells Not Reportable 06/30/18 03:47 Ovalocytes Not Reportable 06/30/18 03:47 Helmet Cells Not Reportable 06/30/18 03:47 Ferrell-[place] Bodies Not Reportable 06/30/18 03:47 Cornelius Rings Not Reportable 06/30/18 03:47 [place] Cells Not Reportable 06/30/18 03:47 Bite Cells Not Reportable 06/30/18 03:47 Crenated Cell Not Reportable 06/30/18 03:47 Elliptocytes Not Reportable 06/30/18 03:47 Acanthocytes (Spur) Not Reportable 06/30/18 03:47 Rouleaux Not Reportable 06/30/18 03:47 Hemoglobin C Crystals Not Reportable 06/30/18 03:47 Schistocytes Not Reportable 06/30/18 03:47 Malaria parasites Not Reportable 06/30/18 03:47 Alex Bodies Not Reportable 06/30/18 03:47 Hem Pathologist Commnt No 06/30/18 03:47 POC ABG pH 7.478 (7.35-7.45) H 06/30/18 04:52 POC ABG pCO2 32.4 (35-45) L 06/30/18 04:52 POC ABG pO2 76 (80-105) L 06/30/18 04:52 POC ABG HCO3 24.0 06/30/18 04:52 POC ABG Total CO2 25 06/30/18 04:52 POC ABG O2 Sat 96 06/30/18 04:52 POC ABG Base Excess 0 06/30/18 04:52 FiO2 45 % 06/30/18 04:52 Sodium 142 mmol/L (137-145) 06/30/18 03:47 Potassium 3.4 mmol/L (3.6-5.0) L D 06/30/18 03:47 Chloride 101.6 mmol/L (98-107) 06/30/18 03:47 Carbon Dioxide 24 mmol/L (22-30) 06/30/18 03:47 Anion Gap 20 mmol/L 06/30/18 03:47 BUN 20 mg/dL (7-17) H 06/30/18 03:47 Creatinine 1.2 mg/dL (0.7-1.2) 06/30/18 03:47 Estimated GFR 55 ml/min 06/30/18 03:47 BUN/Creatinine Ratio 17 % 06/30/18 03:47 Glucose 177 mg/dL (65-100) H 06/30/18 03:47 POC Glucose 187 (70-105) H 06/30/18 11:58 Hemoglobin A1c 11.3 % (4-6) H 06/30/18 Unknown Calcium 8.3 mg/dL (8.4-10.2) L 06/30/18 03:47 Total Bilirubin 0.50 mg/dL (0.1-1.2) 06/29/18 Unknown AST 28 units/L (5-40) 06/29/18 Unknown ALT 11 units/L (7-56) 06/29/18 Unknown Alkaline Phosphatase 89 units/L (35-129) 06/29/18 Unknown Total Creatine Kinase 101 units/L (30-135) 06/29/18 Unknown Total Protein 7.2 g/dL (6.3-8.2) 06/29/18 Unknown Albumin 4.2 g/dL (3.9-5) 06/29/18 Unknown Albumin/Globulin Ratio 1.4 % 06/29/18 Unknown Urine Color Straw (Yellow) 06/29/18 08:14 Urine Turbidity Clear (Clear) 06/29/18 08:14 Urine pH 7.0 (5.0-7.0) 06/29/18 08:14 Ur Specific [place] 1.009 (1.003-1.030) 06/29/18 08:14 Urine Protein 100 mg/dl mg/dL (Negative) 06/29/18 08:14 Urine Glucose (UA) >=500 mg/dL (Negative) 06/29/18 08:14 Urine Ketones Neg mg/dL (Negative) 06/29/18 08:14 Urine Blood Neg (Negative) 06/29/18 08:14 Urine Nitrite Neg (Negative) 06/29/18 08:14 Urine Bilirubin Neg (Negative) 06/29/18 08:14 Urine Urobilinogen < 2.0 mg/dL (<2.0) 06/29/18 08:14 Ur Leukocyte Esterase Neg (Negative) 06/29/18 08:14 Urine WBC (Auto) 2.0 /HPF (0.0-6.0) 06/29/18 08:14 Urine RBC (Auto) < 1.0 /HPF (0.0-6.0) 06/29/18 08:14 Nutrition/Malnutrition Assess - Dietary Evaluation Nutrition/Malnutrition Findings: Nutrition Notes Start: 06/30/18 08:54 Freq: Status: Active Protocol: Document 06/30/18 08:54 IVETTE (Rec: 06/30/18 09:13 IVETTE [email or web address]) Co-Sign 06/30/18 08:54 NHALL Nutrition Notes Need for Assessment generated from: MD Order Initial or Follow up Assessment Current Diagnosis Diabetes Other Pertinent Diagnosis CVA, head trauma, Hx of seizures, arthritis, depression Labs/Tests K: 3.4 BUN: 20 Glu: 205 A1C: 11.3 Pertinent Medications Reviewed Height 5 ft 6 in Weight 95.7 kg [place] Body Weight (lbs) 130.0 BMI 34.0 Weight Status Obese Subjective/Other Information MD consult for new TF. TF now on hold for extubation. Burn Absent Trauma Present #1 Nutrition Diagnosis Inadequate oral intake Etiology Vent As Evidenced by Signs and Symptoms NPO status Is patient on ventilator? Yes Is Patient Ambulatory and/or Out of Bed No REE-([place]-confined to bed) 1827.588 Kcal/Kg value to use for calculation 14 Approximate Energy Requirements Using 1340 kcal/Kg Calculation Used for Recommendations Kcal/kg Additional Notes IBW: 59kg PRO: 118g/day (2g/kg IBW) Fluid: 1 ml/kcal Nutrition Intervention Change Diet Order: Advance diet when medically feasible Nutrition Support: Initiate TF if diet cannot be advanced Vital High Protein at 55ml/hr with 40ml flushes q4h Kcal 1,320 Protein (gm) 116 Fluid (mL) 1,104 Goal #1 TF tolerance Goal #2 TF to meet at least 65-70% of energy and 80-100% of protein needs Anticipated Discharge Needs: Unknown at this time Follow-Up By: 07/02/18 Additional Comments F/u for new TF
--- NOTE | 2018-06-30 20:18 | XRay Report ---
FINAL REPORT EXAM: XR CHEST 1V AP HISTORY: sat 88 TECHNIQUE: Frontal portable view of the chest Comparison: None FINDINGS: There is platelike atelectasis or scar formation in the left lung base. There is no definite evidence of focal infiltrate and no evidence of pneumothorax or pleural fluid co llection. The cardiac silhouette is enlarged. The thoracic aorta is unremarkable. There is prominence of the pulmonary venous vasculature suggestive of pulmonary venous congestion. The bony structures are notable for deformity of the posterior lateral aspect of multiple right-sided ribs consistent with sequela of previous fractures. IMPRESSION: 1. Enlarged cardiac silhouette with evidence of pulmonary venous congestion. 2. No definite plain film evidence of an acute pulmonary process. 3. Sequela of multiple right-sided rib fractures. If further imaging is required, CT chest may be helpful.
[2018-06-30] MEDS ORDERED: LASIX IV ONE (20:42)
[2018-06-30] MEDS: LANTUS SUB-Q SCH (21:32)
[2018-06-30] MEDS: KEPPRA PO SCH (21:35)
[2018-06-30] MEDS: PRAVACHOL PO SCH (21:35)
[2018-06-30] MEDS: GLUCOPHAGE PO SCH (21:36)
[2018-07-01] MEDS: HEPARIN SUB-Q SCH ×3 (06:51→22:29)
[2018-07-01] MEDS: CYMBALTA PO SCH (09:28)
[2018-07-01] MEDS: ZOLOFT PO SCH (09:28)
[2018-07-01] MEDS: GLUCOPHAGE PO SCH ×2 (09:28→22:29)
[2018-07-01] MEDS: KEPPRA PO SCH ×2 (09:28→22:29)
[2018-07-01] MEDS: ZESTRIL PO SCH (09:28)
[2018-07-01] MEDS: SODIUM CHLORIDE FLUSH SYRINGE 10 ML IV SCH ×2 (09:29→22:31)
[2018-07-01] MEDS: HumuLIN R SUB-Q SCH ×4 (09:34→22:51)
--- NOTE | 2018-07-01 12:39 | Progress Note ---
Assessment and Plan 67 y/o female with status epilepticus, intubated and diprovan used for seizure . 1. Seizures have stopped. Stable on Trileptal and BID keppra, neurology following. 2. Hypoxemia resolved with diuresis, wean FiO2 as tolerated 3. Stable for transfer out of unit Subjective Date of service: 07/01/18 Interval history: Was not transferred yesterday as she had an acute episode of desaturations. Stat ABG and CXR ordered. Showed some pulmonary edema and mild hypoxemia. Given Lasix 20mg IVx1 and had great response. Objective Vital Signs - 12hr 07/01/18 07/01/18 07/01/18 01:00 02:01 03:00 Temperature Pulse Rate 99 H 108 H 113 H Respiratory 27 H 11 L 19 Rate Blood Pressure 158/73 165/82 166/82 O2 Sat by Pulse 96 92 87 Oximetry 07/01/18 07/01/18 07/01/18 04:00 05:00 06:00 Temperature 98.7 F Pulse Rate 104 H 107 H 109 H Respiratory 14 13 16 Rate Blood Pressure 157/77 161/75 183/100 O2 Sat by Pulse 95 95 94 Oximetry 07/01/18 07/01/18 07/01/18 07:00 08:00 08:01 Temperature 99.5 F Pulse Rate 109 H 127 H Respiratory 25 H 25 H Rate Blood Pressure 177/94 183/100 O2 Sat by Pulse 93 98 89 Oximetry 07/01/18 07/01/18 07/01/18 08:10 09:01 09:28 Temperature Pulse Rate 120 H 118 H Respiratory 20 Rate Blood Pressure 171/88 177/94 O2 Sat by Pulse 95 100 Oximetry 07/01/18 07/01/18 07/01/18 10:00 10:01 11:01 Temperature Pulse Rate 125 H 124 H 118 H Respiratory 21 13 Rate Blood Pressure 129/71 151/81 O2 Sat by Pulse 95 94 Oximetry 07/01/18 12:01 Temperature Pulse Rate 120 H Respiratory 15 Rate Blood Pressure 148/77 O2 Sat by Pulse Oximetry Constitutional: no acute distress, alert ENT: other (orally intubated and sedated) Neck: supple Effort: normal Ascultation: Bilateral: clear Percussion: Bilateral: not dull Cardiovascular: regular rate and rhythm Gastrointestinal: normoactive bowel sounds, soft, non-distended Integumentary: normal Extremities: no cyanosis, no edema, pink and warm, pulses normal Neurologic: normal mental status, non-focal exam, CN II-XII normal CBC and BMP: 06/30/18 03:47 06/30/18 03:47 ABG, PT/INR, D-dimer: ABG POC ABG pH 7.439 (7.35-7.45) 06/30/18 19:51 POC ABG pCO2 39.7 (35-45) 06/30/18 19:51 POC ABG pO2 60 (80-105) L 06/30/18 19:51 POC ABG HCO3 26.9 06/30/18 19:51 POC ABG Total CO2 28 06/30/18 19:51 POC ABG O2 Sat 92 06/30/18 19:51 Abnormal lab findings: Abnormal Labs 06/29/18 06/29/18 06/29/18 09:11 09:12 11:35 WBC RBC Hgb Hct Seg Neuts % (Manual) Lymphocytes % (Manual) Seg Neutrophils # Man Lymphocytes # (Manual) Monocytes # (Manual) POC ABG pH 7.313 L POC ABG pCO2 49.6 H POC ABG pO2 Sodium Potassium Chloride BUN Glucose POC Glucose 320 H 211 H Hemoglobin A1c Calcium 06/29/18 06/29/18 06/29/18 15:20 16:52 23:48 WBC RBC Hgb Hct Seg Neuts % (Manual) Lymphocytes % (Manual) Seg Neutrophils # Man Lymphocytes # (Manual) Monocytes # (Manual) POC ABG pH POC ABG pCO2 34.3 L POC ABG pO2 Sodium Potassium Chloride BUN Glucose POC Glucose 142 H 154 H Hemoglobin A1c Calcium 06/29/18 06/29/18 06/30/18 Unknown Unknown 03:47 WBC 21.5 H 21.4 H RBC 5.18 H Hgb 15.8 H 14.8 H Hct 47.2 H 45.0 H Seg Neuts % (Manual) 96.0 H 80.0 H Lymphocytes % (Manual) 3.0 L 12.0 L Seg Neutrophils # Man 20.6 H 17.1 H Lymphocytes # (Manual) 0.6 L Monocytes # (Manual) 1.3 H POC ABG pH POC ABG pCO2 POC ABG pO2 Sodium 136 L Potassium 5.5 H Chloride 92.5 L BUN Glucose 398 H POC Glucose Hemoglobin A1c Calcium 06/30/18 06/30/18 06/30/18 03:47 04:52 05:11 WBC RBC Hgb Hct Seg Neuts % (Manual) Lymphocytes % (Manual) Seg Neutrophils # Man Lymphocytes # (Manual) Monocytes # (Manual) POC ABG pH 7.478 H POC ABG pCO2 32.4 L POC ABG pO2 76 L Sodium Potassium 3.4 L D Chloride BUN 20 H Glucose 177 H POC Glucose 205 H Hemoglobin A1c Calcium 8.3 L 06/30/18 06/30/18 06/30/18 11:58 17:34 19:51 WBC RBC Hgb Hct Seg Neuts % (Manual) Lymphocytes % (Manual) Seg Neutrophils # Man Lymphocytes # (Manual) Monocytes # (Manual) POC ABG pH POC ABG pCO2 POC ABG pO2 60 L Sodium Potassium Chloride BUN Glucose POC Glucose 187 H 180 H Hemoglobin A1c Calcium 06/30/18 06/30/18 07/01/18 21:19 Unknown 00:16 WBC RBC Hgb Hct Seg Neuts % (Manual) Lymphocytes % (Manual) Seg Neutrophils # Man Lymphocytes # (Manual) Monocytes # (Manual) POC ABG pH POC ABG pCO2 POC ABG pO2 Sodium Potassium Chloride BUN Glucose POC Glucose 248 H 202 H Hemoglobin A1c 11.3 H Calcium 07/01/18 07/01/18 06:01 08:09 WBC RBC Hgb Hct Seg Neuts % (Manual) Lymphocytes % (Manual) Seg Neutrophils # Man Lymphocytes # (Manual) Monocytes # (Manual) POC ABG pH POC ABG pCO2 POC ABG pO2 Sodium Potassium Chloride BUN Glucose POC Glucose 207 H 208 H Hemoglobin A1c Calcium
--- NOTE | 2018-07-01 15:58 | Progress Note ---
Assessment and Plan Assessment and plan: 67f who pw status epilepticus, continued seizing despite multiple doses of ativan, and was given keppra and versed, was then intubated and sedated on propofol ggt after which seizures ceased Dx Status epilepticus Acute metabolic encephalopathy SIRS without organ dysfunction Hyperkalemia Hyperglycemia Type 2 dm, a1c 11 acute respiratory failure on MV <96hours,due to seizures Plan UA, cxr, neg, fup sputum cx CT head negative, dw neurology, increase keppra dose, obtain MR brain was extubated 06/30/18 received iv fluids optimize insulins DVT prophylaxis, SCDs Critical care TIME 35 MINUTES History Interval history: was agitated, tachycardic and hypoxic last night, concerning for seizure Review of systems Constitutional: No fevers, no malaise, no joint pains CVS: No chest pain, no orthopnea, no dyspnea on exertion, no pedal edema GI: No abdominal pain, no diarrhea, no vomiting, no constipation Respiratory: No shortness of breath, no wheezing, no coughing Hospitalist Physical - Physical exam Narrative exam: General.: Appears well, no distress, nontoxic HEENT: Moist mucous membranes, extraocular muscles intact, no lymphadenopathy Neck: supple Cardiac: S1-S2 heard Lungs: clear to auscultation bilaterally Abdomen: soft , nontender, nondistended, bowel sounds positive Extremities: no edema clubbing or cyanosis Skin: no rash or lesions Neurologic: no gross focal deficits Psych: appropriate behavior, appropriate mood, corporative, judgment intact - Constitutional Vitals: Temp Pulse Resp BP Pulse Ox 98.5 F 107 H 12 149/58 93 07/01/18 12:00 07/01/18 14:01 07/01/18 14:01 07/01/18 14:01 07/01/18 14:01 General appearance: Present: well-nourished Results - Labs CBC & Chem 7: 06/30/18 03:47 06/30/18 03:47 Labs: Laboratory Last Values WBC 21.4 K/mm3 (4.5-11.0) H 06/30/18 03:47 RBC 4.98 M/mm3 (3.65-5.03) 06/30/18 03:47 Hgb 14.8 gm/dl (10.1-14.3) H 06/30/18 03:47 Hct 45.0 % (30.3-42.9) H 06/30/18 03:47 MCV 90 fl (79-97) 06/30/18 03:47 MCH 30 pg (28-32) 06/30/18 03:47 MCHC 33 % (30-34) 06/30/18 03:47 RDW 13.7 % (13.2-15.2) 06/30/18 03:47 Plt Count 280 K/mm3 (140-440) 06/30/18 03:47 Add Manual Diff Complete 06/30/18 03:47 Total Counted 100 06/30/18 03:47 Seg Neutrophils % Transportation Agent 06/29/18 Unknown Seg Neuts % (Manual) 80.0 % (40.0-70.0) H 06/30/18 03:47 Band Neutrophils % 2.0 % 06/30/18 03:47 Lymphocytes % (Manual) 12.0 % (13.4-35.0) L 06/30/18 03:47 Reactive Lymphs % (Man) 0 % 06/30/18 03:47 Monocytes % (Manual) 6.0 % (0.0-7.3) 06/30/18 03:47 Eosinophils % (Manual) 0 % (0.0-4.3) 06/30/18 03:47 Basophils % (Manual) 0 % (0.0-1.8) 06/30/18 03:47 Metamyelocytes % 0 % 06/30/18 03:47 Myelocytes % 0 % 06/30/18 03:47 Promyelocytes % 0 % 06/30/18 03:47 Blast Cells % 0 % 06/30/18 03:47 Nucleated RBC % Not Reportable 06/30/18 03:47 Seg Neutrophils # Man 17.1 K/mm3 (1.8-7.7) H 06/30/18 03:47 Band Neutrophils # 0.4 K/mm3 06/30/18 03:47 Lymphocytes # (Manual) 2.6 K/mm3 (1.2-5.4) 06/30/18 03:47 Abs React Lymphs (Man) 0.0 K/mm3 06/30/18 03:47 Monocytes # (Manual) 1.3 K/mm3 (0.0-0.8) H 06/30/18 03:47 Eosinophils # (Manual) 0.0 K/mm3 (0.0-0.4) 06/30/18 03:47 Basophils # (Manual) 0.0 K/mm3 (0.0-0.1) 06/30/18 03:47 Metamyelocytes # 0.0 K/mm3 06/30/18 03:47 Myelocytes # 0.0 K/mm3 06/30/18 03:47 Promyelocytes # 0.0 K/mm3 06/30/18 03:47 Blast Cells # 0.0 K/mm3 06/30/18 03:47 WBC Morphology Not Reportable 06/30/18 03:47 Hypersegmented Neuts Not Reportable 06/30/18 03:47 Hyposegmented Neuts Not Reportable 06/30/18 03:47 Hypogranular Neuts Not Reportable 06/30/18 03:47 Smudge Cells Not Reportable 06/30/18 03:47 Toxic Granulation Not Reportable 06/30/18 03:47 Toxic Vacuolation Not Reportable 06/30/18 03:47 Dohle Bodies Not Reportable 06/30/18 03:47 Pelger-Huet Anomaly Not Reportable 06/30/18 03:47 Johanna Rods Not Reportable 06/30/18 03:47 Platelet Estimate Appears normal 06/30/18 03:47 Clumped Platelets Not Reportable 06/30/18 03:47 Plt Clumps, EDTA Not Reportable 06/30/18 03:47 Large Platelets Not Reportable 06/30/18 03:47 Giant Platelets Not Reportable 06/30/18 03:47 Platelet Satelliting Not Reportable 06/30/18 03:47 Plt Morphology Comment Not Reportable 06/30/18 03:47 RBC Morphology Normal 06/30/18 03:47 Dimorphic RBCs Not Reportable 06/30/18 03:47 Polychromasia Not Reportable 06/30/18 03:47 Hypochromasia Not Reportable 06/30/18 03:47 Poikilocytosis Not Reportable 06/30/18 03:47 Anisocytosis Not Reportable 06/30/18 03:47 Microcytosis Not Reportable 06/30/18 03:47 Macrocytosis Not Reportable 06/30/18 03:47 Spherocytes Not Reportable 06/30/18 03:47 Pappenheimer Bodies Not Reportable 06/30/18 03:47 Sickle Cells Not Reportable 06/30/18 03:47 Target Cells Not Reportable 06/30/18 03:47 Tear Drop Cells Not Reportable 06/30/18 03:47 Ovalocytes Not Reportable 06/30/18 03:47 Helmet Cells Not Reportable 06/30/18 03:47 Ferrell-Sullivan Bodies Not Reportable 06/30/18 03:47 [place] Rings Not Reportable 06/30/18 03:47 [place] Cells Not Reportable 06/30/18 03:47 Bite Cells Not Reportable 06/30/18 03:47 Crenated Cell Not Reportable 06/30/18 03:47 Elliptocytes Not Reportable 06/30/18 03:47 Acanthocytes (Spur) Not Reportable 06/30/18 03:47 Rouleaux Not Reportable 06/30/18 03:47 Hemoglobin C Crystals Not Reportable 06/30/18 03:47 Schistocytes Not Reportable 06/30/18 03:47 Malaria parasites Not Reportable 06/30/18 03:47 Alex Bodies Not Reportable 06/30/18 03:47 Hem Pathologist Commnt No 06/30/18 03:47 POC ABG pH 7.439 (7.35-7.45) 06/30/18 19:51 POC ABG pCO2 39.7 (35-45) 06/30/18 19:51 POC ABG pO2 60 (80-105) L 06/30/18 19:51 POC ABG HCO3 26.9 06/30/18 19:51 POC ABG Total CO2 28 06/30/18 19:51 POC ABG O2 Sat 92 06/30/18 19:51 POC ABG Base Excess 3 06/30/18 19:51 FiO2 21 % 06/30/18 19:51 Sodium 142 mmol/L (137-145) 06/30/18 03:47 Potassium 3.4 mmol/L (3.6-5.0) L D 06/30/18 03:47 Chloride 101.6 mmol/L (98-107) 06/30/18 03:47 Carbon Dioxide 24 mmol/L (22-30) 06/30/18 03:47 Anion Gap 20 mmol/L 06/30/18 03:47 BUN 20 mg/dL (7-17) H 06/30/18 03:47 Creatinine 1.2 mg/dL (0.7-1.2) 06/30/18 03:47 Estimated GFR 55 ml/min 06/30/18 03:47 BUN/Creatinine Ratio 17 % 06/30/18 03:47 Glucose 177 mg/dL (65-100) H 06/30/18 03:47 POC Glucose 203 (70-105) H 07/01/18 12:36 Hemoglobin A1c 11.3 % (4-6) H 06/30/18 Unknown Calcium 8.3 mg/dL (8.4-10.2) L 06/30/18 03:47 Total Bilirubin 0.50 mg/dL (0.1-1.2) 06/29/18 Unknown AST 28 units/L (5-40) 06/29/18 Unknown ALT 11 units/L (7-56) 06/29/18 Unknown Alkaline Phosphatase 89 units/L (35-129) 06/29/18 Unknown Total Creatine Kinase 101 units/L (30-135) 06/29/18 Unknown Total Protein 7.2 g/dL (6.3-8.2) 06/29/18 Unknown Albumin 4.2 g/dL (3.9-5) 06/29/18 Unknown Albumin/Globulin Ratio 1.4 % 06/29/18 Unknown Urine Color Straw (Yellow) 06/29/18 08:14 Urine Turbidity Clear (Clear) 06/29/18 08:14 Urine pH 7.0 (5.0-7.0) 06/29/18 08:14 Ur Specific [place] 1.009 (1.003-1.030) 06/29/18 08:14 Urine Protein 100 mg/dl mg/dL (Negative) 06/29/18 08:14 Urine Glucose (UA) >=500 mg/dL (Negative) 06/29/18 08:14 Urine Ketones Neg mg/dL (Negative) 06/29/18 08:14 Urine Blood Neg (Negative) 06/29/18 08:14 Urine Nitrite Neg (Negative) 06/29/18 08:14 Urine Bilirubin Neg (Negative) 06/29/18 08:14 Urine Urobilinogen < 2.0 mg/dL (<2.0) 06/29/18 08:14 Ur Leukocyte Esterase Neg (Negative) 06/29/18 08:14 Urine WBC (Auto) 2.0 /HPF (0.0-6.0) 06/29/18 08:14 Urine RBC (Auto) < 1.0 /HPF (0.0-6.0) 06/29/18 08:14 Nutrition/Malnutrition Assess - Dietary Evaluation Nutrition/Malnutrition Findings: Nutrition Notes Start: 06/30/18 08:54 Freq: Status: Active Protocol: Document 06/30/18 08:54 IVETTE (Rec: 06/30/18 09:13 IVETTE [email or web address]) Co-Sign 06/30/18 08:54 NHALL Nutrition Notes Need for Assessment generated from: MD Order Initial or Follow up Assessment Current Diagnosis Diabetes Other Pertinent Diagnosis CVA, head trauma, Hx of seizures, arthritis, depression Labs/Tests K: 3.4 BUN: 20 Glu: 205 A1C: 11.3 Pertinent Medications Reviewed Height 5 ft 6 in Weight 95.7 kg [place] Body Weight (lbs) 130.0 BMI 34.0 Weight Status Obese Subjective/Other Information MD consult for new TF. TF now on hold for extubation. Burn Absent Trauma Present #1 Nutrition Diagnosis Inadequate oral intake Etiology Vent As Evidenced by Signs and Symptoms NPO status Is patient on ventilator? Yes Is Patient Ambulatory and/or Out of Bed No REE-([facility]-confined to bed) 1827.588 Kcal/Kg value to use for calculation 14 Approximate Energy Requirements Using 1340 kcal/Kg Calculation Used for Recommendations Kcal/kg Additional Notes IBW: 59kg PRO: 118g/day (2g/kg IBW) Fluid: 1 ml/kcal Nutrition Intervention Change Diet Order: Advance diet when medically feasible Nutrition Support: Initiate TF if diet cannot be advanced Vital High Protein at 55ml/hr with 40ml flushes q4h Kcal 1,320 Protein (gm) 116 Fluid (mL) 1,104 Goal #1 TF tolerance Goal #2 TF to meet at least 65-70% of energy and 80-100% of protein needs Anticipated Discharge Needs: Unknown at this time Follow-Up By: 07/02/18 Additional Comments F/u for new TF
--- NOTE | 2018-07-01 18:55 | Progress Note ---
Assessment and Plan 66 yr old female with hx of htn, diabetes, previous CVA with seizure. The pt. had a fall, striking her head, followed by seizures The seizure was probably the result of her head trauma, as noted her to lose balance before the fall. CT reveals old cortical strokes, no new lesions. MRI is pending. EEG reveals a rate of 7 to 8 Hz, some prominent sharp waves in frontal region. No seizures. However, a second spell occurred last pm. These spells could be secondary to her fall and head trauma on the day of admission. Plan - Increase Keppra to 1500 mg BID MRI brain Subjective Date of service: 07/01/18 Principal diagnosis: Generalized seizure Interval history: 67 yr old female with diabetes and hypertension, CVA in 2014, presented to ED after sustaining a fall followed by seizures. The pt. was diagnised with a right parietal stroke in 2014. She had seizures following the stroke and has been on anticonvulsants since that time. Her left side was weak following the stroke, but she rehabilitated well. MRI scan has shown no new ischemic lesions. The pt. experienced a seizure after her stroke in 2014 and has been on antico nvulsants since then, with no further seizures until date of admission. Another event occurred last pm. Tonight she is resting comfortably and in good spirits. Objective - Exam Narrative Exam: Neurological exam - Speech - clear. strategic planning consultant - EOMs are full, face symmetric, V-1 thru V-3 intact bilaterally. Hearing diminished. Tongue midline. Motor - 5/5 in bilateral lower extremities and rt. upper extremity. Left UE - 5-/5 distal extensors.. 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 Reflexes - diminished throughout. Babinski negative. Sensory - appears to appreciate touch and sharp equally bilaterally Cerebellar - FTN with dysmetria on left. Fine finger movements clumsy on left. - Vital Sign Vital Signs - 12hr 07/01/18 07/01/18 07/01/18 07:00 08:00 08:01 Temperature 99.5 F Pulse Rate 109 H 127 H Respiratory 25 H 25 H Rate Blood Pressure 177/94 183/100 O2 Sat by Pulse 93 96 89 Oximetry 07/01/18 07/01/18 07/01/18 08:10 09:01 09:28 Temperature Pulse Rate 120 H 118 H Respiratory 20 Rate Blood Pressure 171/88 177/94 O2 Sat by Pulse 95 100 Oximetry 07/01/18 07/01/18 07/01/18 10:00 10:01 11:01 Temperature Pulse Rate 125 H 124 H 118 H Respiratory 21 13 Rate Blood Pressure 129/71 151/81 O2 Sat by Pulse 95 94 Oximetry 07/01/18 07/01/18 07/01/18 12:00 12:01 13:01 Temperature 98.5 F Pulse Rate 120 H 114 H Respiratory 15 14 Rate Blood Pressure 148/77 151/81 O2 Sat by Pulse 98 Oximetry 07/01/18 07/01/18 07/01/18 14:01 15:01 16:00 Temperature 98.9 F Pulse Rate 107 H 133 H Respiratory 12 21 Rate Blood Pressure 149/58 149/58 O2 Sat by Pulse 93 Oximetry 07/01/18 07/01/18 16:01 16:48 Temperature 99.5 F Pulse Rate 111 H 103 H Respiratory 13 18 Rate Blood Pressure 169/61 155/83 O2 Sat by Pulse 97 Oximetry - Laboratory Findings CBC and BMP: 06/30/18 03:47 06/30/18 03:47 Abnormal Lab Findings: Abnormal Labs 06/29/18 06/29/18 06/29/18 09:11 09:12 11:35 WBC RBC Hgb Hct Seg Neuts % (Manual) Lymphocytes % (Manual) Seg Neutrophils # Man Lymphocytes # (Manual) Monocytes # (Manual) POC ABG pH 7.313 L POC ABG pCO2 49.6 H POC ABG pO2 Sodium Potassium Chloride BUN Glucose POC Glucose 320 H 211 H Hemoglobin A1c Calcium 06/29/18 06/29/18 06/29/18 15:20 16:52 23:48 WBC RBC Hgb Hct Seg Neuts % (Manual) Lymphocytes % (Manual) Seg Neutrophils # Man Lymphocytes # (Manual) Monocytes # (Manual) POC ABG pH POC ABG pCO2 34.3 L POC ABG pO2 Sodium Potassium Chloride BUN Glucose POC Glucose 142 H 154 H Hemoglobin A1c Calcium 06/29/18 06/29/18 06/30/18 Unknown Unknown 03:47 WBC 21.5 H 21.4 H RBC 5.18 H Hgb 15.8 H 14.8 H Hct 47.2 H 45.0 H Seg Neuts % (Manual) 96.0 H 80.0 H Lymphocytes % (Manual) 3.0 L 12.0 L Seg Neutrophils # Man 20.6 H 17.1 H Lymphocytes # (Manual) 0.6 L Monocytes # (Manual) 1.3 H POC ABG pH POC ABG pCO2 POC ABG pO2 Sodium 136 L Potassium 5.5 H Chloride 92.5 L BUN Glucose 398 H POC Glucose Hemoglobin A1c Calcium 06/30/18 06/30/18 06/30/18 03:47 04:52 05:11 WBC RBC Hgb Hct Seg Neuts % (Manual) Lymphocytes % (Manual) Seg Neutrophils # Man Lymphocytes # (Manual) Monocytes # (Manual) POC ABG pH 7.478 H POC ABG pCO2 32.4 L POC ABG pO2 76 L Sodium Potassium 3.4 L D Chloride BUN 20 H Glucose 177 H POC Glucose 205 H Hemoglobin A1c Calcium 8.3 L 06/30/18 06/30/18 06/30/18 11:58 17:34 19:51 WBC RBC Hgb Hct Seg Neuts % (Manual) Lymphocytes % (Manual) Seg Neutrophils # Man Lymphocytes # (Manual) Monocytes # (Manual) POC ABG pH POC ABG pCO2 POC ABG pO2 60 L Sodium Potassium Chloride BUN Glucose POC Glucose 187 H 180 H Hemoglobin A1c Calcium 06/30/18 06/30/18 07/01/18 21:19 Unknown 00:16 WBC RBC Hgb Hct Seg Neuts % (Manual) Lymphocytes % (Manual) Seg Neutrophils # Man Lymphocytes # (Manual) Monocytes # (Manual) POC ABG pH POC ABG pCO2 POC ABG pO2 Sodium Potassium Chloride BUN Glucose POC Glucose 248 H 202 H Hemoglobin A1c 11.3 H Calcium 07/01/18 07/01/18 07/01/18 06:01 08:09 12:36 WBC RBC Hgb Hct Seg Neuts % (Manual) Lymphocytes % (Manual) Seg Neutrophils # Man Lymphocytes # (Manual) Monocytes # (Manual) POC ABG pH POC ABG pCO2 POC ABG pO2 Sodium Potassium Chloride BUN Glucose POC Glucose 207 H 208 H 203 H Hemoglobin A1c Calcium 07/01/18 16:12 WBC RBC Hgb Hct Seg Neuts % (Manual) Lymphocytes % (Manual) Seg Neutrophils # Man Lymphocytes # (Manual) Monocytes # (Manual) POC ABG pH POC ABG pCO2 POC ABG pO2 Sodium Potassium Chloride BUN Glucose POC Glucose 120 H Hemoglobin A1c Calcium
[2018-07-01] MEDS: LANTUS SUB-Q SCH (23:02)
[2018-07-01] MEDS: PRAVACHOL PO SCH (23:02)
[2018-07-02] MEDS: HEPARIN SUB-Q SCH ×2 (05:06→13:36)
[2018-07-02] MEDS: HumuLIN R SUB-Q SCH ×3 (07:11→17:09)
[2018-07-02] MEDS: ZESTRIL PO SCH (09:07)
[2018-07-02] MEDS: ZOLOFT PO SCH (09:10)
[2018-07-02] MEDS: GLUCOPHAGE PO SCH (09:10)
[2018-07-02] MEDS: CYMBALTA PO SCH (09:11)
[2018-07-02] MEDS: KEPPRA PO SCH (09:11)
[2018-07-02] MEDS: SODIUM CHLORIDE FLUSH SYRINGE 10 ML IV SCH (09:12)
[2018-07-02 09:13] VITALS: BP 141/93
--- NOTE | 2018-07-02 11:44 | Magnetic Resonance Report ---
MRI OF THE BRAIN WITHOUT CONTRAST: HISTORY: Seizures, head trauma PROCEDURE: Multiplanar, multisequence MR imaging of the brain without IV contrast was performed. FINDINGS: Compared to the CT head dated 06/29/18. Diffuse volume loss and chronic white matter changes are again identified. Chronic infarcts in the anterior right frontal lobe, superior right temporal lobe and right parietal lobe are again noted. There is no evidence for acute ischemia, hemorrhage, mass or extra-axial fluid collection. The midline structures are central. The basal cisterns are patent. Normal ventricular size. The orbital cavities and sella turcica demonstrate no abnormality. The right frontal and right anterior ethmoid air cells are opacified. The remaining sinuses and mastoid air cells are clear. IMPRESSION: No acute intracranial process. Chronic findings as described above which are unchanged since the CT head performed 3 days ago.
--- NOTE | 2018-07-02 13:58 | Progress Note ---
Assessment and Plan 67 y/o female with status epilepticus, intubated and diprovan used for seizure . 1. stable pulm status. Will sign off. Call if questions. Subjective Date of service: 07/02/18 Principal diagnosis: Generalized seizure Interval history: Successful transfer out of ICU. STable breathing norman and now on room air. Objective Vital Signs - 12hr 07/02/18 07/02/18 07/02/18 03:14 07:36 07:57 Temperature 98.8 F 98.8 F Pulse Rate 103 H 97 H Pulse Rate [ Right Radial] Respiratory 22 20 Rate Blood Pressure 161/88 162/86 O2 Sat by Pulse 100 94 98 Oximetry 07/02/18 07/02/18 09:07 10:00 Temperature Pulse Rate 114 H Pulse Rate [ 108 H Right Radial] Respiratory 22 Rate Blood Pressure 141/93 O2 Sat by Pulse 98 Oximetry Constitutional: no acute distress, alert ENT: other (orally intubated and sedated) Neck: supple Effort: normal Ascultation: Bilateral: clear Percussion: Bilateral: not dull Cardiovascular: regular rate and rhythm Gastrointestinal: normoactive bowel sounds, soft, non-distended Integumentary: normal Extremities: no cyanosis, no edema, pink and warm, pulses normal Neurologic: normal mental status, non-focal exam, CN II-XII normal CBC and BMP: 06/30/18 03:47 06/30/18 03:47 ABG, PT/INR, D-dimer: ABG POC ABG pH 7.439 (7.35-7.45) 06/30/18 19:51 POC ABG pCO2 39.7 (35-45) 06/30/18 19:51 POC ABG pO2 60 (80-105) L 06/30/18 19:51 POC ABG HCO3 26.9 06/30/18 19:51 POC ABG Total CO2 28 06/30/18 19:51 POC ABG O2 Sat 92 06/30/18 19:51 Abnormal lab findings: Abnormal Labs 06/29/18 06/29/18 06/29/18 09:11 09:12 11:35 WBC RBC Hgb Hct Seg Neuts % (Manual) Lymphocytes % (Manual) Seg Neutrophils # Man Lymphocytes # (Manual) Monocytes # (Manual) POC ABG pH 7.313 L POC ABG pCO2 49.6 H POC ABG pO2 Sodium Potassium Chloride BUN Glucose POC Glucose 320 H 211 H Hemoglobin A1c Calcium 06/29/18 06/29/18 06/29/18 15:20 16:52 23:48 WBC RBC Hgb Hct Seg Neuts % (Manual) Lymphocytes % (Manual) Seg Neutrophils # Man Lymphocytes # (Manual) Monocytes # (Manual) POC ABG pH POC ABG pCO2 34.3 L POC ABG pO2 Sodium Potassium Chloride BUN Glucose POC Glucose 142 H 154 H Hemoglobin A1c Calcium 06/29/18 06/29/18 06/30/18 Unknown Unknown 03:47 WBC 21.5 H 21.4 H RBC 5.18 H Hgb 15.8 H 14.8 H Hct 47.2 H 45.0 H Seg Neuts % (Manual) 96.0 H 80.0 H Lymphocytes % (Manual) 3.0 L 12.0 L Seg Neutrophils # Man 20.6 H 17.1 H Lymphocytes # (Manual) 0.6 L Monocytes # (Manual) 1.3 H POC ABG pH POC ABG pCO2 POC ABG pO2 Sodium 136 L Potassium 5.5 H Chloride 92.5 L BUN Glucose 398 H POC Glucose Hemoglobin A1c Calcium 06/30/18 06/30/18 06/30/18 03:47 04:52 05:11 WBC RBC Hgb Hct Seg Neuts % (Manual) Lymphocytes % (Manual) Seg Neutrophils # Man Lymphocytes # (Manual) Monocytes # (Manual) POC ABG pH 7.478 H POC ABG pCO2 32.4 L POC ABG pO2 76 L Sodium Potassium 3.4 L D Chloride BUN 20 H Glucose 177 H POC Glucose 205 H Hemoglobin A1c Calcium 8.3 L 06/30/18 06/30/18 06/30/18 11:58 17:34 19:51 WBC RBC Hgb Hct Seg Neuts % (Manual) Lymphocytes % (Manual) Seg Neutrophils # Man Lymphocytes # (Manual) Monocytes # (Manual) POC ABG pH POC ABG pCO2 POC ABG pO2 60 L Sodium Potassium Chloride BUN Glucose POC Glucose 187 H 180 H Hemoglobin A1c Calcium 06/30/18 06/30/18 07/01/18 21:19 Unknown 00:16 WBC RBC Hgb Hct Seg Neuts % (Manual) Lymphocytes % (Manual) Seg Neutrophils # Man Lymphocytes # (Manual) Monocytes # (Manual) POC ABG pH POC ABG pCO2 POC ABG pO2 Sodium Potassium Chloride BUN Glucose POC Glucose 248 H 202 H Hemoglobin A1c 11.3 H Calcium 07/01/18 07/01/18 07/01/18 06:01 08:09 12:36 WBC RBC Hgb Hct Seg Neuts % (Manual) Lymphocytes % (Manual) Seg Neutrophils # Man Lymphocytes # (Manual) Monocytes # (Manual) POC ABG pH POC ABG pCO2 POC ABG pO2 Sodium Potassium Chloride BUN Glucose POC Glucose 207 H 208 H 203 H Hemoglobin A1c Calcium 07/01/18 07/01/18 07/02/18 16:12 21:48 07:09 WBC RBC Hgb Hct Seg Neuts % (Manual) Lymphocytes % (Manual) Seg Neutrophils # Man Lymphocytes # (Manual) Monocytes # (Manual) POC ABG pH POC ABG pCO2 POC ABG pO2 Sodium Potassium Chloride BUN Glucose POC Glucose 120 H 297 H 212 H Hemoglobin A1c Calcium 07/02/18 11:46 WBC RBC Hgb Hct Seg Neuts % (Manual) Lymphocytes % (Manual) Seg Neutrophils # Man Lymphocytes # (Manual) Monocytes # (Manual) POC ABG pH POC ABG pCO2 POC ABG pO2 Sodium Potassium Chloride BUN Glucose POC Glucose 236 H Hemoglobin A1c Calcium
--- NOTE | 2018-07-02 14:42 | Progress Note ---
Hospitalist Physical - Constitutional Vitals: Temp Pulse Resp BP Pulse Ox 98.8 F 108 H 22 141/93 98 07/02/18 07:36 07/02/18 10:00 07/02/18 10:00 07/02/18 09:07 07/02/18 10:00 General appearance: Present: well-nourished Results - Labs CBC & Chem 7: 06/30/18 03:47 06/30/18 03:47 Labs: Laboratory Last Values WBC 21.4 K/mm3 (4.5-11.0) H 06/30/18 03:47 RBC 4.98 M/mm3 (3.65-5.03) 06/30/18 03:47 Hgb 14.8 gm/dl (10.1-14.3) H 06/30/18 03:47 Hct 45.0 % (30.3-42.9) H 06/30/18 03:47 MCV 90 fl (79-97) 06/30/18 03:47 MCH 30 pg (28-32) 06/30/18 03:47 MCHC 33 % (30-34) 06/30/18 03:47 RDW 13.7 % (13.2-15.2) 06/30/18 03:47 Plt Count 280 K/mm3 (140-440) 06/30/18 03:47 Add Manual Diff Complete 06/30/18 03:47 Total Counted 100 06/30/18 03:47 Seg Neutrophils % Lifter 06/29/18 Unknown Seg Neuts % (Manual) 80.0 % (40.0-70.0) H 06/30/18 03:47 Band Neutrophils % 2.0 % 06/30/18 03:47 Lymphocytes % (Manual) 12.0 % (13.4-35.0) L 06/30/18 03:47 Reactive Lymphs % (Man) 0 % 06/30/18 03:47 Monocytes % (Manual) 6.0 % (0.0-7.3) 06/30/18 03:47 Eosinophils % (Manual) 0 % (0.0-4.3) 06/30/18 03:47 Basophils % (Manual) 0 % (0.0-1.8) 06/30/18 03:47 Metamyelocytes % 0 % 06/30/18 03:47 Myelocytes % 0 % 06/30/18 03:47 Promyelocytes % 0 % 06/30/18 03:47 Blast Cells % 0 % 06/30/18 03:47 Nucleated RBC % Not Reportable 06/30/18 03:47 Seg Neutrophils # Man 17.1 K/mm3 (1.8-7.7) H 06/30/18 03:47 Band Neutrophils # 0.4 K/mm3 06/30/18 03:47 Lymphocytes # (Manual) 2.6 K/mm3 (1.2-5.4) 06/30/18 03:47 Abs React Lymphs (Man) 0.0 K/mm3 06/30/18 03:47 Monocytes # (Manual) 1.3 K/mm3 (0.0-0.8) H 06/30/18 03:47 Eosinophils # (Manual) 0.0 K/mm3 (0.0-0.4) 06/30/18 03:47 Basophils # (Manual) 0.0 K/mm3 (0.0-0.1) 06/30/18 03:47 Metamyelocytes # 0.0 K/mm3 06/30/18 03:47 Myelocytes # 0.0 K/mm3 06/30/18 03:47 Promyelocytes # 0.0 K/mm3 06/30/18 03:47 Blast Cells # 0.0 K/mm3 06/30/18 03:47 WBC Morphology Not Reportable 06/30/18 03:47 Hypersegmented Neuts Not Reportable 06/30/18 03:47 Hyposegmented Neuts Not Reportable 06/30/18 03:47 Hypogranular Neuts Not Reportable 06/30/18 03:47 Smudge Cells Not Reportable 06/30/18 03:47 Toxic Granulation Not Reportable 06/30/18 03:47 Toxic Vacuolation Not Reportable 06/30/18 03:47 Dohle Bodies Not Reportable 06/30/18 03:47 Pelger-Huet Anomaly Not Reportable 06/30/18 03:47 Johanna Rods Not Reportable 06/30/18 03:47 Platelet Estimate Appears normal 06/30/18 03:47 Clumped Platelets Not Reportable 06/30/18 03:47 Plt Clumps, EDTA Not Reportable 06/30/18 03:47 Large Platelets Not Reportable 06/30/18 03:47 Giant Platelets Not Reportable 06/30/18 03:47 Platelet Satelliting Not Reportable 06/30/18 03:47 Plt Morphology Comment Not Reportable 06/30/18 03:47 RBC Morphology Normal 06/30/18 03:47 Dimorphic RBCs Not Reportable 06/30/18 03:47 Polychromasia Not Reportable 06/30/18 03:47 Hypochromasia Not Reportable 06/30/18 03:47 Poikilocytosis Not Reportable 06/30/18 03:47 Anisocytosis Not Reportable 06/30/18 03:47 Microcytosis Not Reportable 06/30/18 03:47 Macrocytosis Not Reportable 06/30/18 03:47 Spherocytes Not Reportable 06/30/18 03:47 Pappenheimer Bodies Not Reportable 06/30/18 03:47 Sickle Cells Not Reportable 06/30/18 03:47 Target Cells Not Reportable 06/30/18 03:47 Tear Drop Cells Not Reportable 06/30/18 03:47 Ovalocytes Not Reportable 06/30/18 03:47 Helmet Cells Not Reportable 06/30/18 03:47 Ferrell-Dundarrach Bodies Not Reportable 06/30/18 03:47 [place] Rings Not Reportable 06/30/18 03:47 Chili Cells Not Reportable 06/30/18 03:47 Bite Cells Not Reportable 06/30/18 03:47 Crenated Cell Not Reportable 06/30/18 03:47 Elliptocytes Not Reportable 06/30/18 03:47 Acanthocytes (Spur) Not Reportable 06/30/18 03:47 Rouleaux Not Reportable 06/30/18 03:47 Hemoglobin C Crystals Not Reportable 06/30/18 03:47 Schistocytes Not Reportable 06/30/18 03:47 Malaria parasites Not Reportable 06/30/18 03:47 Alex Bodies Not Reportable 06/30/18 03:47 Hem Pathologist Commnt No 06/30/18 03:47 POC ABG pH 7.439 (7.35-7.45) 06/30/18 19:51 POC ABG pCO2 39.7 (35-45) 06/30/18 19:51 POC ABG pO2 60 (80-105) L 01/16/19 19:51 POC ABG HCO3 26.9 06/30/18 19:51 POC ABG Total CO2 28 06/30/18 19:51 POC ABG O2 Sat 92 06/30/18 19:51 POC ABG Base Excess 3 06/30/18 19:51 FiO2 21 % 06/30/18 19:51 Sodium 142 mmol/L (137-145) 06/30/18 03:47 Potassium 3.4 mmol/L (3.6-5.0) L D 06/30/18 03:47 Chloride 101.6 mmol/L (98-107) 06/30/18 03:47 Carbon Dioxide 24 mmol/L (22-30) 06/30/18 03:47 Anion Gap 20 mmol/L 06/30/18 03:47 BUN 20 mg/dL (7-17) H 06/30/18 03:47 Creatinine 1.2 mg/dL (0.7-1.2) 06/30/18 03:47 Estimated GFR 55 ml/min 06/30/18 03:47 BUN/Creatinine Ratio 17 % 06/30/18 03:47 Glucose 177 mg/dL (65-100) H 06/30/18 03:47 POC Glucose 236 (70-105) H 07/02/18 11:46 Hemoglobin A1c 11.3 % (4-6) H 06/30/18 Unknown Calcium 8.3 mg/dL (8.4-10.2) L 06/30/18 03:47 Total Bilirubin 0.50 mg/dL (0.1-1.2) 06/29/18 Unknown AST 28 units/L (5-40) 06/29/18 Unknown ALT 11 units/L (7-56) 06/29/18 Unknown Alkaline Phosphatase 89 units/L (35-129) 06/29/18 Unknown Total Creatine Kinase 101 units/L (30-135) 06/29/18 Unknown Total Protein 7.2 g/dL (6.3-8.2) 06/29/18 Unknown Albumin 4.2 g/dL (3.9-5) 06/29/18 Unknown Albumin/Globulin Ratio 1.4 % 06/29/18 Unknown Urine Color Straw (Yellow) 06/29/18 08:14 Urine Turbidity Clear (Clear) 06/29/18 08:14 Urine pH 7.0 (5.0-7.0) 06/29/18 08:14 Ur Specific [place] 1.009 (1.003-1.030) 06/29/18 08:14 Urine Protein 100 mg/dl mg/dL (Negative) 06/29/18 08:14 Urine Glucose (UA) >=500 mg/dL (Negative) 06/29/18 08:14 Urine Ketones Neg mg/dL (Negative) 06/29/18 08:14 Urine Blood Neg (Negative) 06/29/18 08:14 Urine Nitrite Neg (Negative) 06/29/18 08:14 Urine Bilirubin Neg (Negative) 06/29/18 08:14 Urine Urobilinogen < 2.0 mg/dL (<2.0) 06/29/18 08:14 Ur Leukocyte Esterase Neg (Negative) 06/29/18 08:14 Urine WBC (Auto) 2.0 /HPF (0.0-6.0) 06/29/18 08:14 Urine RBC (Auto) < 1.0 /HPF (0.0-6.0) 06/29/18 08:14 Nutrition/Malnutrition Assess - Dietary Evaluation Nutrition/Malnutrition Findings: Nutrition Notes Start: 06/30/18 08:54 Freq: Status: Active Protocol: Document 06/30/18 08:54 IVETTE (Rec: 06/30/18 09:13 IVETTE [email or web address]) Co-Sign 06/30/18 08:54 NHALL Nutrition Notes Need for Assessment generated from: MD Order Initial or Follow up Assessment Current Diagnosis Diabetes Other Pertinent Diagnosis CVA, head trauma, Hx of seizures, arthritis, depression Labs/Tests K: 3.4 BUN: 20 Glu: 205 A1C: 11.3 Pertinent Medications Reviewed Height 5 ft 6 in Weight 95.7 kg [place] Body Weight (lbs) 130.0 BMI 34.0 Weight Status Obese Subjective/Other Information MD consult for new TF. TF now on hold for extubation. Burn Absent Trauma Present #1 Nutrition Diagnosis Inadequate oral intake Etiology Vent As Evidenced by Signs and Symptoms NPO status Is patient on ventilator? Yes Is Patient Ambulatory and/or Out of Bed No REE-([place]-confined to bed) 1827.588 Kcal/Kg value to use for calculation 14 Approximate Energy Requirements Using 1340 kcal/Kg Calculation Used for Recommendations Kcal/kg Additional Notes IBW: 59kg PRO: 118g/day (2g/kg IBW) Fluid: 1 ml/kcal Nutrition Intervention Change Diet Order: Advance diet when medically feasible Nutrition Support: Initiate TF if diet cannot be advanced Vital High Protein at 55ml/hr with 40ml flushes q4h Kcal 1,320 Protein (gm) 116 Fluid (mL) 1,104 Goal #1 TF tolerance Goal #2 TF to meet at least 65-70% of energy and 80-100% of protein needs Anticipated Discharge Needs: Unknown at this time Follow-Up By: 07/02/18 Additional Comments F/u for new TF
--- NOTE | 2018-07-02 15:51 | Progress Note ---
Assessment and Plan 66 yr old female with hx of htn, diabetes, previous CVA with seizure. The pt. had a fall, striking her head, followed by seizures The seizure was probably the result of her head trauma, as noted her to lose balance before the fall. CT reveals old cortical strokes, no new lesions. MRI is pending. EEG reveals a rate of 7 to 8 Hz, some prominent sharp waves in frontal region. No seizures. However, a second spell occurred last pm. These spells could be secondary to her fall and head trauma on the day of admission. MRI brain appears unremarkable, chronic stroke as per CT. Concerned about anxiety. She has taken Seroquel in the past. Plan - Seroquel 25 mg qhs OK for discharge from my standpoint. Subjective Date of service: 07/02/18 Principal diagnosis: Generalized seizure Interval history: 67 yr old female with diabetes and hypertension, CVA in 2014, presented to ED after sustaining a fall followed by seizures. The pt. was diagnised with a right parietal stroke in 2014. She had seizures following the stroke and has b een on anticonvulsants since that time. Her left side was weak following the stroke, but she rehabilitated well. MRI scan has shown no new ischemic lesions. The pt. experienced a seizure after her stroke in 2014 and has been on anticonvulsants since then, with no further seizures until date of admission. Feeling well. Sitting up in chair. No further seizures. Objective - Exam Narrative Exam: Neurological exam - Speech - clear. brusher - EOMs are full, face symmetric, V-1 thru V-3 intact bilaterally. Hearing diminished. Tongue midline. Motor - 5/5 in bilateral lower extremities and rt. upper extremity. Left UE - 5-/5 distal extensors.. Good photogrammetric stereo compiler 5/5. Reflexes - diminished throughout. Babinski negative. Sensory - appears to appreciate touch and sharp equally bilaterally Cerebellar - FTN with dysmetria on left. Fine finger movements clumsy on left. - Vital Sign Vital Signs - 12hr 07/02/18 07/02/18 07/02/18 07:36 07:57 09:07 Temperature 98.8 F Pulse Rate 97 H 114 H Pulse Rate [ Right Radial] Respiratory 20 Rate Blood Pressure 162/86 141/93 O2 Sat by Pulse 94 98 Oximetry 07/02/18 10:00 Temperature Pulse Rate Pulse Rate [ 108 H Right Radial] Respiratory 22 Rate Blood Pressure O2 Sat by Pulse 98 Oximetry - Laboratory Findings CBC and BMP: 06/30/18 03:47 06/30/18 03:47 Abnormal Lab Findings: Abnormal Labs 06/29/18 06/29/18 06/29/18 09:11 09:12 11:35 WBC RBC Hgb Hct Seg Neuts % (Manual) Lymphocytes % (Manual) Seg Neutrophils # Man Lymphocytes # (Manual) Monocytes # (Manual) POC ABG pH 7.313 L POC ABG pCO2 49.6 H POC ABG pO2 Sodium Potassium Chloride BUN Glucose POC Glucose 320 H 211 H Hemoglobin A1c Calcium 06/29/18 06/29/18 06/29/18 15:20 16:52 23:48 WBC RBC Hgb Hct Seg Neuts % (Manual) Lymphocytes % (Manual) Seg Neutrophils # Man Lymphocytes # (Manual) Monocytes # (Manual) POC ABG pH POC ABG pCO2 34.3 L POC ABG pO2 Sodium Potassium Chloride BUN Glucose POC Glucose 142 H 154 H Hemoglobin A1c Calcium 06/29/18 06/29/18 06/30/18 Unknown Unknown 03:47 WBC 21.5 H 21.4 H RBC 5.18 H Hgb 15.8 H 14.8 H Hct 47.2 H 45.0 H Seg Neuts % (Manual) 96.0 H 80.0 H Lymphocytes % (Manual) 3.0 L 12.0 L Seg Neutrophils # Man 20.6 H 17.1 H Lymphocytes # (Manual) 0.6 L Monocytes # (Manual) 1.3 H POC ABG pH POC ABG pCO2 POC ABG pO2 Sodium 136 L Potassium 5.5 H Chloride 92.5 L BUN Glucose 398 H POC Glucose Hemoglobin A1c Calcium 06/30/18 06/30/18 06/30/18 03:47 04:52 05:11 WBC RBC Hgb Hct Seg Neuts % (Manual) Lymphocytes % (Manual) Seg Neutrophils # Man Lymphocytes # (Manual) Monocytes # (Manual) POC ABG pH 7.478 H POC ABG pCO2 32.4 L POC ABG pO2 76 L Sodium Potassium 3.4 L D Chloride BUN 20 H Glucose 177 H POC Glucose 205 H Hemoglobin A1c Calcium 8.3 L 06/30/18 06/30/18 06/30/18 11:58 17:34 19:51 WBC RBC Hgb Hct Seg Neuts % (Manual) Lymphocytes % (Manual) Seg Neutrophils # Man Lymphocytes # (Manual) Monocytes # (Manual) POC ABG pH POC ABG pCO2 POC ABG pO2 60 L Sodium Potassium Chloride BUN Glucose POC Glucose 187 H 180 H Hemoglobin A1c Calcium 06/30/18 06/30/18 07/01/18 21:19 Unknown 00:16 WBC RBC Hgb Hct Seg Neuts % (Manual) Lymphocytes % (Manual) Seg Neutrophils # Man Lymphocytes # (Manual) Monocytes # (Manual) POC ABG pH POC ABG pCO2 POC ABG pO2 Sodium Potassium Chloride BUN Glucose POC Glucose 248 H 202 H Hemoglobin A1c 11.3 H Calcium 07/01/18 07/01/18 07/01/18 06:01 08:09 12:36 WBC RBC Hgb Hct Seg Neuts % (Manual) Lymphocytes % (Manual) Seg Neutrophils # Man Lymphocytes # (Manual) Monocytes # (Manual) POC ABG pH POC ABG pCO2 POC ABG pO2 Sodium Potassium Chloride BUN Glucose POC Glucose 207 H 208 H 203 H Hemoglobin A1c Calcium 07/01/18 07/01/18 07/02/18 16:12 21:48 07:09 WBC RBC Hgb Hct Seg Neuts % (Manual) Lymphocytes % (Manual) Seg Neutrophils # Man Lymphocytes # (Manual) Monocytes # (Manual) POC ABG pH POC ABG pCO2 POC ABG pO2 Sodium Potassium Chloride BUN Glucose POC Glucose 120 H 297 H 212 H Hemoglobin A1c Calcium 07/02/18 11:46 WBC RBC Hgb Hct Seg Neuts % (Manual) Lymphocytes % (Manual) Seg Neutrophils # Man Lymphocytes # (Manual) Monocytes # (Manual) POC ABG pH POC ABG pCO2 POC ABG pO2 Sodium Potassium Chloride BUN Glucose POC Glucose 236 H Hemoglobin A1c Calcium
--- NOTE | 2018-07-02 15:55 | Discharge Summary ---
Providers - Providers Date of Admission: 06/29/18 09:59 Attending physician: DOMINGUEZ DIAZ MD 06/29/18 13:42 Consult to Dietitian/Nutrition [CONS] Routine Physician Instructions: Reason For Exam: Reason for Consult: Write/Manage Tube Feeding Consult to Physician [CONS] Routine Comment: Consulting Provider: DELIA HARRIS Physician Instructions: Reason For Exam: seizure 06/30/18 10:32 Physical Therapy Evaluation and Treat [CONS] Routine Comment: Reason For Exam: debility 07/02/18 14:42 Consult to Mental Health [CONS] Routine Reason For Exam: behavioral disturbance Place consult to:: [facility] Primary care physician: R D [employer] Hospitalization Condition: Stable Hospital course: 67f who pw status epilepticus, continued seizing despite multiple doses of ativan, and was given keppra and versed, was then intubated and sedated on propofol ggt after which seizures ceased. She stopped seizing, improved and was extubated the following day. She had an episode of agitation, tachycardia and hypoxia, it was suspected to be another seizure, therefore keppra dose was increased. CT and MR brain were negative for acute findings. It was noted that she was on high doses of insulin at home which were just started, she admits that she was not checking her glc frequently. While she was in the hospital, she did not require such high doses of insulin, we suspect that she had a hypoglycemic episode provoking the seizure. Insulin doses were reduced and it was explained to her. she also had some reactive airway, therefore given inhaler and short steroid taper Dx Status epilepticus Acute metabolic encephalopathy SIRS without organ dysfunction Hyperkalemia Hyperglycemia Type 2 dm, a1c 11 acute respiratory failure on MV <96hours,due to seizures reactive airway disease hx of psychosis Disposition: DC-01 TO HOME OR SELFCARE Time spent for discharge: 33 mins Core Measure Documentation - Palliative Care Palliative Care/ Comfort Measures: Not Applicable - Core Measures Any of the following diagnoses?: none Exam - Constitutional Vitals: Temp Pulse Resp BP Pulse Ox 98.8 F 108 H 22 141/93 98 07/02/18 07:36 07/02/18 10:00 07/02/18 10:00 07/02/18 09:07 07/02/18 10:00 General appearance: Present: no acute distress, well-nourished - EENT Eyes: Present: PERRL ENT: hearing intact, clear oral mucosa - Neck Neck: Present: supple, normal ROM - Respiratory Respiratory effort: normal Respiratory: bilateral: CTA - Cardiovascular Heart Sounds: Present: S1 & S2. Absent: rub, click - Extremities Extremities: pulses symmetrical, No edema Peripheral Pulses: within normal limits - Abdominal General gastrointestinal: Present: soft, non-tender, non-distended, normal bowel sounds Female genitourinary: Present: normal - Integumentary Integumentary: Present: clear, warm, dry - Musculoskeletal Musculoskeletal: gait normal, strength equal bilaterally - Psychiatric Psychiatric: appropriate mood/affect, intact judgment & insight - Neurologic Neurologic: CNII-XII intact, moves all extremities Plan Follow up with: PRIMARY CARE,MD [Primary Care Provider] - 3-5 Days Prescriptions: ALBUTEROL Inhaler(NF) [VENTOLIN Inhaler(NF)] 1 puff IH Q4H #1 inha Insulin Detemir [Levemir VIAL] 25 unit SQ HS #1 vial Insulin Regular, Human [HumuLIN R] 0 unit SQ AC #1 vial levETIRAcetam [Keppra TAB] 1,500 mg PO BID #120 tablet Prednisone [predniSONE 5 mg (6-Day Pack, 21 Tabs)] 5 mg PO .TAPER #1 tab.ds.pk Quetiapine Fumarate [SEROquel] 50 mg PO HS #30 tablet
== END 2018-07-02 17:40 | disposition home or self-care (01) | DRG 208 ==
LOC: ED 07:02 → CC1 09:59 → 2B-ACE 07-01 16:40
PROVIDERS: ADMIT Internal Medicine; ATTEND Internal Medicine
PROC: 5A1945Z Respiratory Ventilation, 24-96 Consecutive Hours (ICD-10-PCS; principal; 2018-06-29)
PROC: 0BH17EZ Insertion of Endotracheal Airway into Trachea, Via Natural or Artificial Opening (ICD-10-PCS; 2018-06-29)
PROC: 4A033R1 Measurement of Arterial Saturation, Peripheral, Percutaneous Approach (ICD-10-PCS; 2018-06-29)
PROC: 3E0234Z Introduction of Serum, Toxoid and Vaccine into Muscle, Percutaneous Approach (ICD-10-PCS; 2018-06-30)
DX: J96.00 Acute respiratory failure, unspecified whether with hypoxia or hypercapnia (principal); G93.41 Metabolic encephalopathy; R65.10 Systemic inflammatory response syndrome (SIRS) of non-infectious origin without acute organ dysfunction; G40.901 Epilepsy, unspecified, not intractable, with status epilepticus; E87.5 Hyperkalemia; E11.65 Type 2 diabetes mellitus with hyperglycemia; J45.909 Unspecified asthma, uncomplicated; W18.39XA Other fall on same level, initial encounter; M19.90 Unspecified osteoarthritis, unspecified site; F32.9 Major depressive disorder, single episode, unspecified; G43.909 Migraine, unspecified, not intractable, without status migrainosus; I10 Essential (primary) hypertension; Z86.73 Personal history of transient ischemic attack (TIA), and cerebral infarction without residual deficits; Z23 Encounter for immunization; Y93.89 Activity, other specified; Y92.89 Other specified places as the place of occurrence of the external cause; Y99.8 Other external cause status; Z79.4 Long term (current) use of insulin; Z87.442 Personal history of urinary calculi; Z79.82 Long term (current) use of aspirin; Z79.899 Other long term (current) drug therapy
CPT/HCPCS: 36415; 36600; 51702; 70450; 70551; 71045; 74018; 80048; 80053; 81001; 82550; 82803; 82962; 83036; 84132; 85007; 85025; 87070; 87205; 90686; 90732; 93005; 93010; 94002; 94003; 94760; 95819; 96361; 96374; 96375; G0378; A9270-GY; J0330; J1644; J1815; J1940; J1953; J2060; J2704; J7030

== ENCOUNTER 2019-01-01 10:38 | Emergency (ER) | payer MEDICARE ==
[2019-01-01 12:27] LABS: Basophils # (Auto) 0.1 K/mm3 (0.0-0.1); Basophils % (Auto) 0.7 % (0.0-1.8); Eosinophils % (Auto) 0.1 % (0.0-4.3); Hematocrit 42.9 % (30.3-42.9); Hemoglobin 14.6 gm/dl (10.1-14.3); Lymphocytes # (Auto) 1.8 K/mm3 (1.2-5.4); Lymphocytes % (Auto) 10.6 % (13.4-35.0); Mean Corpuscular HGB Conc 34 % (30-34); Mean Corpuscular Volume 89 fl (79-97); Monocytes # (Auto) 1.3 K/mm3 (0.0-0.8); Monocytes % (Auto) 7.7 % (0.0-7.3); Platelet Count 288 K/mm3 (140-440); Red Cell Distribution Width 12.7 % (13.2-15.2)
[2019-01-01 12:39] LABS: BUN/Creatinine Ratio 34; Blood Urea Nitrogen 37 mg/dL (7-17); Calcium 9.3 mg/dL (8.4-10.2); Hemolysis Index 29
[2019-01-01] MEDS ORDERED: NACL 0.9% 500 ML 500 ML IV ONE (12:57)
[2019-01-01] MEDS ORDERED: DILAUDID IV ONE (12:57)
[2019-01-01] MEDS ORDERED: HumuLIN R IV ONE (12:57)
--- NOTE | 2019-01-01 12:59 | Emergency Department Report ---
ED General Adult HPI - General Chief complaint: Fall Stated complaint: BODY PAIN Time Seen by Provider: 01/01/19 11:49 Source: patient, RN notes reviewed, old records reviewed Mode of arrival: Wheelchair Limitations: Physical Limitation - History of Present Illness Initial comments: Primary care Dr.: Dr Aranda Past medical history: Seizures, diabetes, hemoglobin A1c of 11, history of reactive airway disease, history of psychosis history of stroke, with residual left-sided disability. This is a 68-year-old female. This patient is not known to this provider previously. Patient presents to the emergency room after mechanical fall a few days ago. Patient reports that she was walking down the stairs, and accidentally slipped, and may have hit her head, landed on her lower back, right hand. He fine initially, but approximately one to one and a half days after the initial fall, started to have generalized body pain, and aches. Her pain is sha rp, increases with palpation, and decreases with rest. The patient reports feeling very anxious. She makes no complaint of new extremity weakness or numbness. She makes no complaint of bladder or bowel retention or incontinence, or saddle anesthesia. Has no complaint of chest pain or abdominal pain. Has no complaint of urinary symptoms. Her symptoms are markedly improved in the emergency room with IV fluids, and hydromorphone., -: Sudden Location: back, right, upper extremity Severity scale (0 -10): 0 Quality: aching Consistency: constant Improves with: medication, rest Worsens with: movement - Related Data Home Medications Medication Instructions Recorded Confirmed Last Taken Duloxetine HCl [DULoxetine] 30 mg PO DAILY 06/29/18 06/29/18 Unknown Lisinopril [Zestril] 20 mg PO BID 06/29/18 06/29/18 Unknown metFORMIN [Glucophage] 500 mg PO BID 06/29/18 06/29/18 Unknown Previous Rx's Medication Instructions Recorded Last Taken Type Sertraline [Zoloft] 25 mg PO QDAY tablet 07/01/18 Unknown Rx ALBUTEROL Inhaler(NF) [VENTOLIN 1 puff IH Q4H #1 inha 07/02/18 Unknown Rx Inhaler(NF)] Insulin Detemir [Levemir VIAL] 25 unit SQ HS #1 vial 07/02/18 Unknown Rx Insulin Regular, Human [HumuLIN R] 0 unit SQ AC #1 vial 07/02/18 Unknown Rx Prednisone [predniSONE 5 mg (6-Day 5 mg PO .TAPER #1 tab.ds.pk 07/02/18 Unknown Rx Pack, 21 Tabs)] Quetiapine Fumarate [SEROquel] 50 mg PO HS #30 tablet 07/02/18 Unknown Rx levETIRAcetam [Keppra TAB] 1,500 mg PO BID #120 tablet 07/02/18 Unknown Rx Acetaminophen [Non-Aspirin Extra 500 mg PO Q6HR PRN #30 tablet 01/01/19 Unknown Rx Strength] Ibuprofen [Motrin] 600 mg PO Q8H PRN #30 tablet 01/01/19 Unknown Rx Allergies Allergy/AdvReac Type Severity Reaction Status Date / Time paper tape Allergy Mild Itching Uncoded 01/01/19 10:45 ED Review of Systems ROS: Stated complaint: BODY PAIN Other details as noted in HPI Constitutional: denies: fever Eyes: denies: eye discharge ENT: denies: epistaxis Respiratory: denies: cough Cardiovascular: palpitations Gastrointestinal: denies: nausea, vomiting Genitourinary: denies: dysuria Musculoskeletal: back pain, arthralgia, myalgia Neurological: denies: numbness Psychiatric: anxiety ED Past Medical Hx - Past Medical History Hx Hypertension: Yes Hx CVA: Yes Hx Heart Attack/AMI: No Hx Congestive Heart Failure: No Hx Diabetes: Yes Hx Deep Vein Thrombosis: No Hx Pulmonary Embolism: No Hx Liver Disease: No Hx Renal Disease: No Hx Sickle Cell Disease: No Hx Arthritis: Yes Hx Headaches / Migraines: Yes Hx Seizures: Yes Hx Kidney Stones: Yes (removed 2009) Hx Asthma: No Hx COPD: No Hx Tuberculosis: No Hx Dementia: No Hx HIV: No - Surgical History Hx Coronary Stent: No Hx Open Heart Surgery: No Hx Pacemaker: No Hx Internal Defibrillator: No Hx Cholecystectomy: Yes Hx Appendectomy: No Hx Breast Surgery: No - Social History Smoking Status: Current Every Day Smoker Substance Use Type: None - Medications Home Medications: Home Medications Medication Instructions Recorded Confirmed Last Taken Type Duloxetine HCl [DULoxetine] 30 mg PO DAILY 06/29/18 06/29/18 Unknown History Lisinopril [Zestril] 20 mg PO BID 06/29/18 06/29/18 Unknown History metFORMIN [Glucophage] 500 mg PO BID 06/29/18 06/29/18 Unknown History Sertraline [Zoloft] 25 mg PO QDAY tablet 07/01/18 Unknown Rx ALBUTEROL Inhaler(NF) [VENTOLIN 1 puff IH Q4H #1 inha 07/02/18 Unknown Rx Inhaler(NF)] Insulin Detemir [Levemir VIAL] 25 unit SQ HS #1 vial 07/02/18 Unknown Rx Insulin Regular, Human [HumuLIN R] 0 unit SQ AC #1 vial 07/02/18 Unknown Rx Prednisone [predniSONE 5 mg (6-Day 5 mg PO .TAPER #1 tab.ds.pk 07/02/18 Unknown Rx Pack, 21 Tabs)] Quetiapine Fumarate [SEROquel] 50 mg PO HS #30 tablet 07/02/18 Unknown Rx levETIRAcetam [Keppra TAB] 1,500 mg PO BID #120 tablet 07/02/18 Unknown Rx Acetaminophen [Non-Aspirin Extra 500 mg PO Q6HR PRN #30 tablet 01/01/19 Unknown Rx Strength] Ibuprofen [Motrin] 600 mg PO Q8H PRN #30 tablet 01/01/19 Unknown Rx ED Physical Exam - General Limitations: Physical Limitation General appearance: alert, anxious, obese - Head Head exam: Present: atraumatic, normocephalic - Eye Eye exam: Present: normal appearance, EOMI. Absent: nystagmus - ENT ENT exam: Present: normal exam, normal orophraynx, mucous membranes moist, normal external ear exam - Neck Neck exam: Present: normal inspection, tenderness (there is paraspinal cervical tenderness.), full ROM - Respiratory Respiratory exam: Present: normal lung sounds bilaterally. Absent: respiratory distress - Cardiovascular Cardiovascular Exam: Present: normal rhythm, tachycardia, normal heart sounds. Absent: systolic murmur, diastolic murmur, rubs, gallop - GI/Abdominal GI/Abdominal exam: Present: soft. Absent: distended, tenderness, guarding, rebound, rigid, pulsatile mass - Extremities Exam Extremities exam: Present: normal inspection, full ROM, tenderness (there is rightthumb tenderness. There is paralumbar tenderness. There is no midline lumbar or thoracic spine tenderness. Patient has no joint instability in the knees or ankles. There is some right lateral joint line tenderness in the knee, no significant ligamentous instability. Compartments are soft.), other (2+ pulses noted in the bilateral upper, lower extremity is. There is no long bony tenderness. Pelvis is stable. ) - Back Exam Back exam: Present: normal inspection, paraspinal tenderness. Absent: CVA tenderness (R), CVA tenderness (L), vertebral tenderness - Neurological Exam Neurological exam: Present: alert, oriented X3, motor sensory deficit (chronic weakness left arm, left leg. There is 5 out of 5 strength right arm, right leg. There is chronic for 4.5 out of 5 strength left arm, left leg. Sensation is intact to light touch and pinch in 4 extremities.) - Psychiatric Psychiatric exam: Present: anxious - Skin Skin exam: Present: warm, dry, intact, normal color. Absent: rash ED Course Vital Signs 01/01/19 01/01/19 01/01/19 11:01 12:04 14:48 Temperature 97.2 F L Pulse Rate 137 H 122 H 108 H Respiratory 18 21 20 Rate Blood Pressure 140/68 Blood Pressure 113/74 149/89 [Right] O2 Sat by Pulse 97 99 97 Oximetry 01/01/19 18:01 Temperature Pulse Rate 98 H Respiratory 20 Rate Blood Pressure Blood Pressure 140/80 [Right] O2 Sat by Pulse 97 Oximetry - Reevaluation(s) Reevaluation #1: 01/01/19 14:34 Differential diagnosis, including but not limited to: Myositis, rhabdomyolysis, intracranial injury, musculoskeletal injury, soft tissue injury, dehydration, scaphoid/wrist injury Assessment and plan: 68-year-old female who presents a few days after mechanical fall, likely experiencing expected natural history after mild to moderate blunt trauma. The patient is afebrile with reassuring vital signs with the exception of tachycardia. She has right wrist/snuffbox tenderness, neurologically she is at her baseline by her report, with a GCS of 15.Patient is clinically sober at this time. The cervical spine is cleared through nexus and central [place] c spine rule She is initially tachycardic, and now her heart rate is 106 bpm, her pain is much improved with intravenous hydromorphone. Laboratory studies were ordered prior to my personal evaluation of the patient, and have demonstrated mild myositis with creatinine kinase 2500, and evidence of dehydration and hyperglycemia without anion gap. Her basic ptosis is reviewed and appreciated, based off of the history and physical, do not suspect infectious etiology, but rather stress reaction. She will be given IV fluids, and insulin. X-ray of the right hand suggests a possible scaphoid injury. A right thumb spica splint is ordered. X-ray of the pelvis, right knee, otherwise negative for acute disease. Noncontrast CT scan of the brain is pending interpretation. Patient appears much improved after initial evaluation. 01/01/19 14:46 Reevaluation #2: 01/01/19 15:41 Care will be transferred to the oncoming ER physician, Dr. Newsome, to follow up on CT scan of the brain, and repeat vital signs. Anticipate discharge if CT scan unremarkable, and vital signs normalized. ED Medical Decision Making - Lab Data Result diagrams: 01/01/19 11:48 01/01/19 11:48 Vital Signs 01/01/19 01/01/19 11:01 12:04 Temperature 97.2 F L Pulse Rate 137 H 122 H Respiratory 18 21 Rate Blood Pressure 140/68 Blood Pressure 113/74 [Right] O2 Sat by Pulse 97 99 Oximetry Lab Results 01/01/19 01/01/19 01/01/19 Range/Units 11:48 11:48 11:48 WBC 17.2 H (4.5-11.0) K/mm3 RBC 4.80 (3.65-5.03) M/mm3 Hgb 14.6 H (10.1-14.3) gm/dl Hct 42.9 (30.3-42.9) % MCV 89 (79-97) fl MCH 30 (28-32) pg MCHC 34 (30-34) % RDW 12.7 L (13.2-15.2) % Plt Count 288 (140-440) K/mm3 Lymph % (Auto) 10.6 L (13.4-35.0) % [place] % (Auto) 7.7 H (0.0-7.3) % Eos % (Auto) 0.1 (0.0-4.3) % Baso % (Auto) 0.7 (0.0-1.8) % Lymph # 1.8 (1.2-5.4) K/mm3 [place] # 1.3 H (0.0-0.8) K/mm3 Eos # 0.0 (0.0-0.4) K/mm3 Baso # 0.1 (0.0-0.1) K/mm3 Seg Neutrophils % 80.9 H (40.0-70.0) % Seg Neutrophils # 13.9 H (1.8-7.7) K/mm3 Sodium 135 L (137-145) mmol/L Potassium 4.2 (3.6-5.0) mmol/L Chloride 99.5 (98-107) mmol/L Carbon Dioxide 19 L (22-30) mmol/L Anion Gap 21 mmol/L BUN 37 H (7-17) mg/dL Creatinine 1.1 (0.7-1.2) mg/dL Estimated GFR > 60 ml/min BUN/Creatinine Ratio 34 % Glucose 423 H (65-100) mg/dL POC Glucose (70-105) Calcium 9.3 (8.4-10.2) mg/dL Magnesium 2.00 (1.7-2.3) mg/dL Total Creatine Kinase 2525 H (30-135) units/L / Range/Units 14:52 WBC (4.5-11.0) K/mm3 RBC (3.65-5.03) M/mm3 Hgb (10.1-14.3) gm/dl Hct (30.3-42.9) % MCV (79-97) fl MCH (28-32) pg MCHC (30-34) % RDW (13.2-15.2) % Plt Count (140-440) K/mm3 Lymph % (Auto) (13.4-35.0) % [place] % (Auto) (0.0-7.3) % Eos % (Auto) (0.0-4.3) % Baso % (Auto) (0.0-1.8) % Lymph # (1.2-5.4) K/mm3 [place] # (0.0-0.8) K/mm3 Eos # (0.0-0.4) K/mm3 Baso # (0.0-0.1) K/mm3 Seg Neutrophils % (40.0-70.0) % Seg Neutrophils # (1.8-7.7) K/mm3 Sodium (137-145) mmol/L Potassium (3.6-5.0) mmol/L Chloride (98-107) mmol/L Carbon Dioxide (22-30) mmol/L Anion Gap mmol/L BUN (7-17) mg/dL Creatinine (0.7-1.2) mg/dL Estimated GFR ml/min BUN/Creatinine Ratio % Glucose (65-100) mg/dL POC Glucose 211 H (70-105) Calcium (8.4-10.2) mg/dL Magnesium (1.7-2.3) mg/dL Total Creatine Kinase (30-135) units/L - EKG Data -: EKG Interpreted by Me EKG shows normal: sinus rhythm Rate: tachycardia - EKG Data 01/01/19 14:49 This is a sinus tachycardia, 140 bpm, normal axis, QTC 489 ms, poor color progression, atrial enlargement, motion artifact, no endorsement of chest pain, this is not consistent with ST elevation myocardial infarction. - Radiology Data Radiology results: pending, report reviewed, image reviewed X-ray of the right knee and pelvis negative for acute disease. X-ray of the right wrist, right hand suggests a possible scaphoid injury/fracture. Critical care attestation.: If time is entered above; I have spent that time in minutes in the direct care of this critically ill patient, excluding procedure time. ED Disposition Clinical Impression: Hyperglycemia, Myalgia, Right hand pain, History of fall Disposition: DC-01 TO HOME OR SELFCARE Is pt being admited?: No Does the pt Need Aspirin: No Condition: Stable Instructions: Musculoskeletal Pain (ED), Scaphoid Fracture (ED) Additional Instructions: Please continue current outpatient medications. Drink 6 cups of water per day for the next 7 days. Rest, avoid heavy lifting, and avoid strenuous physical activities. Keep the right wrist splint in place, and follow-up with an orthopedic surgeon/hand surgeon within the next 3-[address] Hansen is a local orthopedic surgeon. Patient should have repeat blood work performed in the next 2-3 days to reassess creatinine kinase level, kidney function, and a glucose levels. The patient may follow up with her primary care doctor, urgent care center, or return to this emergency room for a repeat checkup/evaluation. Pain typically gets worse before it gets better after mechanical fall. Patient will likely continue to experience pain for the next few days to weeks. Case management consult has been requested to see the patient is eligible for home physical therapy, and rehabilitation. However, the patient may elect to follow up with her primary care doctor to see if they can arrange home physical therapy and/or services. Please return to the emergency room right away with new, worsening or different symptoms, or symptoms not present on the initial emergency room evaluation. Prescriptions: Ibuprofen [Motrin] 600 mg PO Q8H PRN #30 tablet PRN Reason: Pain Acetaminophen [Non-Aspirin Extra Strength] 500 mg PO Q6HR PRN #30 tablet PRN Reason: Pain , Severe (7-10) Referrals: ALEKSANDRA ARANDA MD [Primary Care Provider] - 3-5 Days BRIAN HANSEN MD [Staff Physician] - 3-5 Days
[2019-01-01] MEDS ORDERED: NACL 0.9% 1000 ML 2,000 ML IV ONE (14:09)
--- NOTE | 2019-01-01 14:38 | XRay Report ---
RIGHT WRIST, 3 VIEWS INDICATION / CLINICAL INFORMATION: right hand pain fall. COMPARISON: None available. FINDINGS: There is a faint horizontal lucency in the midportion of the scaphoid concerning for very subtle nond isplaced fracture. Please correlate with patient's area of focal point tenderness. I see no other sug gestion of fracture. Alignment is normal. IMPRESSION: Questionable mid scaphoid fracture.. Signer Name: Orly Shepard MD Signed: 01/01/2019 2:33 PM Workstation Name: [id number]
--- NOTE | 2019-01-01 14:39 | XRay Report ---
AP pelvis INDICATION: Pain following fall today FINDINGS: There is no definite fracture or dislocation. No diastasis is seen. No abnormality demonstr ated. Signer Name: David Porter MD Signed: 01/01/2019 2:35 PM Workstation Name: [id number]
--- NOTE | 2019-01-01 14:39 | XRay Report ---
RIGHT KNEE, 3 VIEWS INDICATION / CLINICAL INFORMATION: xr right leg pain fall. COMPARISON: None available. FINDINGS: No fracture, malalignment, or joint effusion is noted. No significant degenerative change for the pat ient's age. IMPRESSION: Negative exam. Signer Name: Orly Shepard MD Signed: 01/01/2019 2:35 PM Workstation Name: [id number]
--- NOTE | 2019-01-01 14:39 | XRay Report ---
RIGHT HAND, 3 VIEWS INDICATION / CLINICAL INFORMATION: right hand pain fall. COMPARISON: None available. FINDINGS: The hand is intact without visible fracture or dislocation. Please note that a questionable mid scaph oid fracture was discussed on the dedicated wrist radiograph report. I see no other suspicious findin gs within the hand. IMPRESSION: Questionable mid scaphoid fracture. No other findings. Please correlate with patient's ar ea of tenderness. Signer Name: Orly Shepard MD Signed: 01/01/2019 2:35 PM Workstation Name: [id number]
--- NOTE | 2019-01-01 17:24 | Cat Scan Report ---
Head CT without intravenous contrast INDICATION: Increasing headache following closed head trauma one week ago COMPARISON: 06/29/2018 FINDINGS: Moderate atrophic changes are unchanged. There is an area of remote ischemia in the right p arietal lobe with an apparent overlying chronic subdural hygroma. No acute hemorrhage. No recent infa rct identified. There is chronic opacification of the right frontal sinus. No acute abnormality. IMPRESSION: Negative head CT Automated exposure control was utilized to diminish radiation dose Signer Name: David Porter MD Signed: 01/01/2019 5:20 PM Workstation Name: [id number]
[2019-01-01 18:02] VITALS: BP 140/80
== END 2019-01-01 18:07 | disposition home or self-care (01) ==
LOC: ED 10:38
DX: M79.641 Pain in right hand (principal); E11.65 Type 2 diabetes mellitus with hyperglycemia; I10 Essential (primary) hypertension; G43.909 Migraine, unspecified, not intractable, without status migrainosus; F17.200 Nicotine dependence, unspecified, uncomplicated; M79.10 Myalgia, unspecified site; Z87.442 Personal history of urinary calculi; Z91.048 Other nonmedicinal substance allergy status; Z86.73 Personal history of transient ischemic attack (TIA), and cerebral infarction without residual deficits; Z79.899 Other long term (current) drug therapy; Z79.4 Long term (current) use of insulin; Z79.84 Long term (current) use of oral hypoglycemic drugs; Z88.8 Allergy status to other drugs, medicaments and biological substances; W10.8XXA Fall (on) (from) other stairs and steps, initial encounter; Y93.01 Activity, walking, marching and hiking; Y92.89 Other specified places as the place of occurrence of the external cause; Y99.8 Other external cause status
CPT/HCPCS: 29125; 36415; 70450; 72170; 73110; 73130; 73562; 80048; 82550; 82962; 83735; 85025; 93005; 93010; 96361; 96374; 96375; 99285; J1170; J7030; J7040; J1815